=== PATIENT | female | born 1995 | race Caucasian/White ===

== ENCOUNTER 2024-05-07 18:18 | Emergency (ER) | payer MEDICAID, SELFPAY ==
--- NOTE | ~2024-05-07 | CT_ITS ---
EXAMINATION: CT HEAD WITHOUT CONTRAST CLINICAL INFORMATION: Fall COMPARISON: None TECHNIQUE: Contiguous axial imaging was performed from the skull base to vertex without intravenous administration of contrast. This CT examination was performed using dose optimization techniques as appropriate, variously including the following: *Automated exposure control *Adjustment of mA and/or kV according to patient size (this includes techniques or standardized protocols for targeted exams where dose is matched to indication/reason for exam; i.e. extremities or head) *Use of iterative reconstruction technique DLP: 673.93 mGy-cm FINDINGS: There is no evidence of acute intracranial hemorrhage or territorial infarction. No abnormal mass effect or midline shift is seen. Velez to white matter differentiation is well preserved. No extra-axial fluid collections are identified. The ventricles are normal in size. There is no abnormal attenuation within the brain parenchyma. The osseous structures and soft tissues are normal. The mastoid air cells and visualized portions of the paranasal sinuses are well aerated. CT/CT cervical spine wo IV con IMPRESSION: No acute intracranial pathology. EXAMINATION: Noncontrast CT scan of the cervical spine. INDICATION: Fall COMPARISON: None. TECHNIQUE: Helical, multidetector axial images were obtained from the occiput to the upper thorax. Coronal and sagittal reformats of the cervical spine were provided for interpretation. DLP: 407.49 mGy-cm FINDINGS: No acute fractures or dislocations of the cervical spine are seen. Straightening the normal cervical curvature. Anatomic alignment and positioning of the vertebral bodies and posterior elements is noted. The atlantoaxial joint and craniovertebral articulations are normal without evidence of subluxation. There is no prevertebral soft tissue swelling. The thyroid gland and visualized portions of the lung apices and mediastinum are unremarkable. IMPRESSION: 1. No acute visible fracture or dislocation. 2. Straightening of the normal cervical curvature.
[2024-05-07 18:23] VITALS: BP 129/86; PULSE 64; RESP 16; TEMP 36.3; O2SAT 99; BMI 32.9
--- NOTE | 2024-05-07 18:24 | ED.FALL ---
HPI - Fall General Chief Complaint: Head Injury Stated Complaint: fell hit head Time Seen by Provider: 05/07/24 19:10 Source: patient Mode of arrival: ambulatory History of Present Illness ED Provider: Dr Ospina HPI Narrative: 28-year-old female, , presents 2 months with stating that she has been under lot of stress lately, she has a 2-month-old baby, not currently , and states that her has said that her behavior is very erratic and ended the baby to him and then ran to the other side of the house at which time he heard a thud and went into the room and found her on the floor, patient does not recall the event herself but states that the back of her head hurts and she has a bump. She reports that she has had previous diagnosis of depression but is not currently on medication, approximately 10 years ago she had a similar break, attempted to harm herself and presented to the hospital. Related Data Allergies Allergy/AdvReac Type Severity Reaction Status Date / Time No Known Allergies Allergy Verified 05/07/24 18:27 Review of Systems Review of Systems: Pertinent positives and negatives as stated in HPI PMFSH Past Medical History Source: nursing notes reviewed Social History Social History Advance Directives: No Advance Directives Information Provided: No Physical Exam Vital Signs: Vital Signs: Last Vital Signs Temp 97.4 F 05/07/24 18:23 Pulse 64 05/07/24 18:23 Resp 16 05/07/24 18:23 BP 129/86 05/07/24 18:23 Pulse Ox 99 05/07/24 18:23 O2 Del Method Room Air 05/07/24 18:23 BMI result Body Mass Index 32.9 VITAL SIGNS: Reviewed. GENERAL: Well developed, well nourished, in no acute distress. HEAD: Normocephalic/contusion to scalp on left occiput EYES: PERRLA, EOMI EARS: Ext canals without abnormality, TMs non-bulging and non-erythematous NOSE: Nares patent bilateral OROPHARYNX: no oral lesions noted, posterior pharynx clear and non-erythematous without noted tonsillar enlargement/erythema/exudates NECK: Supple, no adenopathy LUNGS: Normal breath sounds. No adventitious sounds or accessory muscle use. SpO2<99> CARDIOVASCULAR: Regular rate and rhythm without noted murmurs ABDOMEN: Soft, non-tender, non-distended with bowel sounds. MUSCULOSKELETAL: No tenderness, deformities, or effusions noted on gross inspection. EXTREMITIES: No cyanosis, clubbing or edema. SKIN: Inspection of the skin reveals no rashes NEUROLOGIC: Alert and oriented x 4. Strength and sensation to light touch were grossly intact x 4, cranial nerves 2-12 are grossly intact. Course Course Course Narrative: This is a rapid medical exam completed by Ana OLMOSN: Additional HPI, ROS, PE not included below will be deferred to primary provider. 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 States that she can't think. Unsure when her birthday is. Speaking in full sentences Plan: CT head and c-spine, UA, labs, upreg, etoh, cartwright Medications Administered Discontinued Medications Generic Name Dose Route Start Last Admin Trade Name Freq PRN Reason Stop Dose Admin Acetaminophen 975 mg 05/07/24 20:48 05/07/24 21:10 Acetaminophen 325 Mg Tablet PO 05/07/24 20:49 975 mg ONCE ONE Administration Ibuprofen 400 mg 05/07/24 20:48 05/07/24 21:10 Ibuprofen 400 Mg Tablet PO 05/07/24 20:49 400 mg ONCE ONE Administration Lidocaine 1 patch 05/07/24 20:48 05/07/24 21:10 Lidocaine 4 % Patch Adh..Patch TRANSDERMA 05/07/24 20:49 1 patch ONCE ONE Administration Protocol Potassium Chloride 60 meq 05/07/24 20:13 05/07/24 20:39 Potassium Chloride Er 20 Meq Tab.Er.Prt PO 05/07/24 20:14 60 meq ONCE ONE Administration Medical Decision Making Medical Decision Making [facility] Narrative: 28-year-old female with history and clinical presentation, DDX: Fall, depression I reviewed all investigations and hematologic indices are negative for leukocytosis/anemia/thrombocytopenia. Chemistry indices do not demonstrate an ORALIA there is a mild low potassium which was repleted with 60 mEq of potassium chloride and otherwise no liver enzyme derangements. Ethanol undetectable. Urinalysis is negative for UTI or hematuria and see is negative. CT of the head is negative for intracranial hemorrhage or mass effect and cervical spine is also negative for fracture or subluxation. Patient is otherwise medically cleared for further evaluation by the crisis team. Patient placed in physician observation because the patient needed more time for evaluation by the care team. At the time observation was started the patient's vital signs were stable, patient is alert and oriented, neuro: Nonfocal, CV RRR, lungs clear 2125: Patient was evaluated by the crisis team and they have spoken with both the patient and the and feel that she is a safe discharge to home with outpatient resources. Differential Diagnosis Differential Diagnoses: The differential diagnosis associated with the presentation includes Please see the discussion above Admission/Observation Consideration of admission/observation: Escalation of care including admission/observation considered Please see the discussion above Consult Healthcare Provider Management of the patient was discussed with: Loan Processing Supervisor Please see the discussion above Lab Data MDM Lab Attestation statement: I reviewed the patient's lab results. Please see the discussion 05/07/24 18:33 05/07/24 18:33 Labs: Lab Results 05/07/24 05/07/24 Range/Units 18:33 20:49 WBC 8.8 (4.8-10.8) X10*3/uL RBC 4.83 (4.20-5.50) X10*6/uL Hgb 13.6 (12.0-16.0) g/dl Hct 39.2 (37.0-47.0) % MCV 81.2 (80.0-98.0) fL MCH 28.2 (27.0-33.0) pg MCHC 34.7 (31.0-35.0) g/dl RDW 14.0 (11.0-16.0) % Plt Count 399 (160-400) X10*3/uL MPV 9.5 (9.4-12.3) fL Immature Gran % (Auto) 0.2 (0.0-0.4) % Neut % (Auto) 60.3 (45-73) % Lymph % (Auto) 31.1 (20-40) % Sherman % (Auto) 7.2 (2-11) % Eos % (Auto) 0.6 (0-4) % Baso % (Auto) 0.6 (0-2) % Lymph # (Auto) 2.7 (1.2-4.9) X10*3/uL Sherman # (Auto) 0.6 (0.1-1.2) X10*3/uL Eos # (Auto) 0.1 (0.0-0.4) X10*3/uL Baso # (Auto) 0.1 (0.0-0.2) X10*3/uL Abs Immat Gran (auto) 0.02 (0.00-0.03) X10*3/uL Absolute Neuts (auto) 5.3 (2.0-8.3) x10*3/uL Absolute Nucleated RBC 0.000 (0.0-0.012) X10*3/uL Nucleated RBC % (auto) 0.0 (0.0-0.2) /100WBC Sodium 143 (135-145) mmol/L Potassium 3.2 L (3.3-5.1) mmol/L Chloride 111 H (96-108) mmol/L Carbon Dioxide 22 (22-29) mmol/L Anion Gap 13 (12-20) BUN 14 (9-16) mg/dL Creatinine 0.72 (0.5-1.4) mg/dL Estim Creat Clear Calc 102.7 Estimated GFR > 60 Random Glucose 109 (60-115) mg/dL Calcium 9.7 (8.4-10.2) mg/dL Magnesium 1.9 (1.6-2.6) mg/dL Total Bilirubin 0.5 (0.0-1.0) mg/dL AST 21 (5-31) U/L ALT 39 H (0-31) U/L Alkaline Phosphatase 82 (39-117) U/L Total Protein 7.9 (6.5-8.0) g/dL Albumin 4.7 (3.5-5.0) g/dL Beta HCG, Quant < 2 mIU/mL Urine Color Dark Yellow Urine Appearance Cloudy Urine pH 5.5 (5.0-9.0) Ur Specific [place] >= 1.030 H (1.005-1.025) Urine Protein Trace (Neg-Trace) mg/dL Urine Glucose (UA) Negative (Negative) mg/dL Urine Ketones 40 (Negative) mg/dL Urine Blood Negative (Negative) Urine Nitrite Negative (Negative) Ur Leukocyte Esterase Negative (Negative) Urine Test NEGATIVE (NEGATIVE) Urine Opiates Screen Not Detected (Not Detect) Ur Buprenorphine Scrn Not Detected (Not Detect) ng/mL Ur Oxycodone Screen Not Detected (Not Detect) ng/mL Urine Methadone Screen Not Detected (Not Detect) ng/mL Urine Fentanyl Screen Not Detected (Not Detect) Ur Barbiturates Screen Not Detected (Not Detect) Ur Phencyclidine Scrn Not Detected (Not Detect) Ur Amphetamines Screen Not Detected (Not Detect) U Benzodiazepines Scrn Not Detected (Not Detect) Urine Cocaine Screen Not Detected (Not Detect) U Marijuana (THC) Screen POSITIVE H (Not Detect) Ethyl Alcohol < 10 mg/dL Radiology Impression Discussion of test interpretation with radiology: I have reviewed the radiologist's reading. Radiologist Impression: Please see the discussion above External Record Review External record reviewed: Outpatient record, Prior outpatient labs and Prior outpatient radiology Critical Care Time Critical Care Time Critical Care Time: Yes Total Critical Care Time: 60 Attestation: I personally attest to this time spent taking care of the patient. Discharge Plan Discharge Clinical Impression: Fall, Contusion of scalp, Stress at home, Cannabis use with anxiety disorder Patient Disposition: Home, Self-Care Instructions: Fall Prevention (ED), Scalp Contusion in Adults (ED), Stress (ED) Additional Instructions: I recommend that you reduce cannabis use as this can contribute to anxiety/depression/stress. Do not hesitate to return to this emergency room if you ever have feelings of wanting to harm yourself. Print Language: Danish
[2024-05-07 18:37] LABS: MANUAL DIFF FLAG NO
[2024-05-07 18:43] LABS: Basophils Absolute Auto 0.1 X10*3/uL (0.0-0.2); Basophils Percent Auto 0.6 % (0-2); Eosinophils Absolute Auto 0.1 X10*3/uL (0.0-0.4); Eosinophils Percent Auto 0.6 % (0-4); Hematocrit 39.2 % (37.0-47.0); Hemoglobin 13.6 g/dl (12.0-16.0); Imm Gran Abs Auto 0.02 X10*3/uL (0.00-0.03); Imm Gran Pct Auto 0.2 % (0.0-0.4); Lymphocytes Absolute Auto 2.7 X10*3/uL (1.2-4.9); Lymphocytes Percent Auto 31.1 % (20-40); Mean Corpuscular HGB Conc 34.7 g/dl (31.0-35.0); Mean Corpuscular Hemoglobin 28.2 pg (27.0-33.0); Mean Corpuscular Volume 81.2 fL (80.0-98.0); Mean Platelet Volume 9.5 fL (9.4-12.3); Monocytes Absolute Auto 0.6 X10*3/uL (0.1-1.2); Monocytes Percent Auto 7.2 % (2-11); Neutrophils Absolute Auto 5.3 x10*3/uL (2.0-8.3); Neutrophils Percent Auto 60.3 % (45-73); Platelet Count 399 X10*3/uL (160-400); Red Blood Count 4.83 X10*6/uL (4.20-5.50); White Blood Count 8.8 X10*3/uL (4.8-10.8)
[2024-05-07 19:04] LABS: Alanine Aminotransferase 39 U/L (0-31); Albumin Level 4.7 g/dL (3.5-5.0); Alkaline Phosphatase 82 U/L (39-117); Anion Gap 13 (12-20); Aspartate Amino Transferase 21 U/L (5-31); Bilirubin Total 0.5 mg/dL (0.0-1.0); Blood Urea Nitrogen 14 mg/dL (9-16); Calcium 9.7 mg/dL (8.4-10.2); Carbon Dioxide 22 mmol/L (22-29); Chloride 111 mmol/L (96-108); Creatinine Clr Calc Pharmacy 102.7; Estimated Glomerular Filt Rate > 60; Ethanol < 10 mg/dL; Glucose Random 109 mg/dL (60-115); Magnesium 1.9 mg/dL (1.6-2.6); Potassium 3.2 mmol/L (3.3-5.1); Sodium 143 mmol/L (135-145); Total Protein 7.9 g/dL (6.5-8.0)
--- OUTSIDE RECORDS SUMMARY | 2024-05-07 19:17 | XMS_ITS | Continuity of Care Document ---
Author Organization [facility] Address [address] [place] [id number]- Care Team Providers Care Foiling Machine Operator Name Role Phone Not on Staff, PCP Primary Care Physician Unavail able Encounter [facility] Date(s): 04/09/22 - 05/09/[address] [id number]- Allergies, Adverse Reactions, Alerts No Known Allergies Immunizations Given and Recorded Vaccine Date Status Refusal Reason tetanus/diphtheria/pertussis, acel(Tdap) 02/02/22 Given tetanus/diphtheria/pertussis, acel(Tdap) 12/13/08 Recorded SARS-CoV-2 (COVID-19) mRNA BNT-162b2 vac 12/10/20 Recorded SARS-CoV-2 (COVID-19) mRNA BNT-162b2 vac 11/19/20 Recorded tetanus-diphtheria toxoids (Td) 05/05/15 Recorded influenza virus vaccine, inactivated 10/03/14 Santosh rded influenza virus vaccine, inactivated 09/25/13 Santosh rded influenza virus vaccine, inactivated 12/10/12 Santosh rded influenza virus vaccine, inactivated 11/22/11 Santosh rded influenza virus vaccine, inactivated 01/11/11 Santosh rded influenza virus vaccine, inactivated 09/19/07 Santosh rded influenza virus vaccine, inactivated 09/15/06 Santosh rded Meningococcal Conjugate Vaccine 07/12/14 Recorded Meningococcal Conjugate Vaccine 12/13/08 Recorded Human Papillomavirus Vaccine 01/11/12 Recorded Human Papillomavirus Vaccine 01/11/11 Recorded Human Papillomavirus Vaccine 01/06/10 Recorded influ virus vac, H1N1, inactive(oldterm) 10/21/09 Recorded influ virus vac, H1N1, inactive(oldterm) 08/21/09 Recorded Varicella Virus Vaccine 09/19/07 Recorded Varicella Virus Vaccine 10/01/97 Recorded Poliovirus Vaccine, Inactivated 08/21/02 Recorded diphtheria/tetanus/pertussis, acel(DTaP) 08/21/02 Recorded diphtheria/tetanus/pertussis, acel(DTaP) 04/03/98 Recorded diphtheria/tetanus/pertussis, acel(DTaP) 03/29/97 Recorded diphtheria/tetanus/pertussis, acel(DTaP) 01/28/97 Recorded diphtheria/tetanus/pertussis, acel(DTaP) 96 Recorded Measles/Mumps/Rubella Virus Vaccine 05/30/01 Recor ded Measles/Mumps/Rubella Virus Vaccine 01/01/98 Recor ded Haemophilus B conjugate (HbOC) vaccine 01/01/98 Re corded Haemophilus B conjugate (HbOC) vaccine 03/29/97 Re corded Haemophilus B conjugate (HbOC) vaccine 01/28/97 Re corded Haemophilus B conjugate (HbOC) vaccine 96 Re corded hepatitis B pediatric vaccine 07/05/97 Recorded hepatitis B pediatric vaccine 96 Recorded hepatitis B pediatric vaccine 96 Recorded Medications ferrous gluconate 256 mg (28 mg elemental iron) oral tablet 1 tablet = 256 mg, By Mouth, Daily, # 30 tablet, 2 Refills, Maintenance, 02/03/22 11:50:00 EDT, Tablet, [id number], Partial fill upon patient request if the prescription is for a schedule II opioid drug., 153, cm, 02/02/22 9:51:00 EDT, Height,... Start Date: 02/03/22 Status: Ordered Multivitamins with Folic Acid 1 mg oral tablet 1 tablet, By Mouth, Daily, # 90 tablet, 2 Refills, Maintenance, 09/15/21 14:32:00 EDT, Tablet, [id number], Partial fill upon patient request if the prescription is for a schedule II opioid drug., 1 tablet By Mouth Daily Start Date: 09/15/21 Status: Ordered Problem List Condition Effective Dates Status Health Status Inform ant Elevated glucose tolerance test(Confirmed) Active Anemia during (Confirmed) Active Lower back pain(Confirmed) Active Drug use affecting , antepartum(Confirmed) Active Anxiety and depression(Confirmed) Active Obese class II(Confirmed) Active (Confirmed) Active Vaccination reaction(Confirmed) Active Maternal varicella, non-immune(Confirmed) Active Social History Social History Type Response Smoking Status Never (less than 100 in lifetime) entered on: 09/15/21 Sex
--- OUTSIDE RECORDS SUMMARY | 2024-05-07 19:17 | XMS_ITS | Continuity of Care Document ---
Author Organization [facility] Address [address] [place] [id number]- Care Team Providers Care Wind Up Operator Name Role Phone Not on Staff, PCP Primary Care Physician Unavail able [facility]counter [facility] Date(s): 08/25/21 - 09/24/21 [facility] [address] [address]- Allergies, Adverse Reactions, Alerts No Known Medication Allergies Substance Reaction Severity Status NKA Active Medications Multivitamins with Folic Acid 1 mg oral tablet 1 tablet, By Mouth, Daily, # 90 tablet, 2 Refills, Maintenance, 09/15/21 14:32:00 EDT, Tablet, [id number], Partial fill upon patient request if the prescription is for a schedule II opioid drug., 1 tablet By Mouth Daily Start Date: 09/15/21 Status: Ordered Problem List Condition Effective Dates Status Health Status Inform ant Anxiety and depression(Confirmed) Active Social History Social History Type Response Smoking Status Never (less than 100 in lifetime) entered on: 09/15/21 Sex
--- OUTSIDE RECORDS SUMMARY | 2024-05-07 19:17 | XMS_ITS | Continuity of Care Document ---
Author Organization [facility] Address [address] [place] [id number]- Care Team Providers Care Mds Coordinator Name Role Phone Not on Staff, PCP Primary Care Physician Unavail able Encounter [facility] Date(s): 04/20/22 - 06/17/[address] [address]- Attending Physician: Not on Staff, Attending MD Allergies, Adverse Reactions, Alerts No Known Allergies [...] Effective Dates Status Health Status Inform ant History of drug use(Confirmed) Active Lower back pain(Confirmed) Active Anxiety and depression(Confirmed) Active Obese class I(Confirmed) Active Vaccination reaction(Confirmed) Active Social History Social History Type Response Smoking Status Never (less than 100 in lifetime) entered on: 09/15/21 Sex
--- OUTSIDE RECORDS SUMMARY | 2024-05-07 19:17 | XMS_ITS | Continuity of Care Document ---
Author Organization [facility] Address [address] [place] [phone]- Care Team Providers Care Green Marketing Analyst Name Role Phone Not on Staff, PCP Primary Care Physician Unavail able [place] [facility] [place] 08/19/21 - 08/19/[address] [address]- Encounter Diagnosis Mood changes(Final) - 08/19/21 (Final) - 08/19/21 Discharge Disposition: A-D/C Home Attending Physician: Mirta Jara MD Admitting Physician: Mirta Jara MD Referring Physician: Not on Staff, Referring MD Allergies, Adverse Reactions, Alerts No Known Medication Allergies Substance Reaction Severity Status NKA Active Medications Vistaril pamoate 25 mg oral capsule 1 capsule = 25 mg, By Mouth, 3 times a day, PRN for anxiety, # 40 capsule, 0 Refills, Maintenance, 12/15/20 20:35:00 EST, Capsule, [id number], Partial fill upon patient request if the prescription is for a schedule II opioid drug. Start Date: 12/15/20 Status: Ordered Vital Signs Most recent to oldest [Reference Range]: 1 2 3 Oxygen Saturation [94-100 %] 100 % (08/19/21 4:06 PM) 97 % (08/19/21 12:35 PM) 97 % (08/19/21 12:25 PM) Pulse Rate [55-90 bpm] 68 bpm (08/19/21 4:06 PM) 60 bpm (08/19/21 12:35 PM) 64 bpm (08/19/21 12:25 PM) Blood Pressure [90-138/55-84 mm Hg] 131/76mm Hg (08/19/21 4:06 PM) 120/52mm Hg (08/19/21 12:35 PM) Respiratory Rate [16-30 br/min] 16 br/min (08/19/21 4:06 PM) 16 br/min (08/19/21 12:35 PM) Temperature [96.8-100.4 DegF] 99.5 DegF (08/19/21 12:35 PM) Mode of Delivery (Oxygen) Room air (08/19/21 4:06 PM) Room air (08/19/21 12:35 PM) Room air (08/19/21 12:25 PM) Temperature Route Oral (08/19/21 12:35 PM)
--- OUTSIDE RECORDS SUMMARY | 2024-05-07 19:17 | XMS_ITS | Continuity of Care Document ---
Author Organization [facility] Address [address] [facility] 2nd Floor [address] [place] [address]- Care Team Providers Care Pay Per Click Strategist Name Role Phone Not on Staff, PCP Primary Care Physician Unavail able Encounter [facility] Date(s): 10/21/23 - 12/08/23 [facility] [address] [place] [address]- Attending Physician: Salvador Rae MD Admitting Physician: Salvador Rae MD Referring Physician: Evie Lynch DO Allergies, Adverse Reactions, Alerts No Known Allergies [...] Date: 09/15/21 Status: Ordered Problem List Condition Confirmation Course Effective Dates Status Health [facility] Informant History of drug use Confirmed Active Lower back pain Confirmed Active Anxiety and depression Confirmed Active Obese class I Confirmed Active Vaccination reaction Confirmed Active Social History Social History Type Response Smoking Status Never (less than 100 in lifetime) entered on: 09/15/21 Sex Patient Care team information Care Team Personnel Name: Not on Staff, PCP Position: S Physician (General Medicine) Member Role: PCP Care Team Related Persons Name: ISSACKARLAWAI Address: [place] [address] Name: SKYE KRAFT Address: [place] Address: home [address] [place] [address] Name: DIONNE KRAFT Address: [place] [address] [place] [address]
--- OUTSIDE RECORDS SUMMARY | 2024-05-07 19:17 | XMS_ITS | Continuity of Care Document ---
Author Organization [facility] Address [address] [place] [address]- Care Team Providers Care Oil Rigger Name Role Phone Not on Staff, PCP Primary Care Physician Unavail able [place] [facility] [place] 09/18/21 [facility] [address] [place] [address]- Allergies, Adverse Reactions, Alerts No Known Medication [...]
--- OUTSIDE RECORDS SUMMARY | 2024-05-07 19:17 | XMS_ITS | Continuity of Care Document ---
Author Organization [facility] Address [address] [place] [id number]- Care Team Providers Care Air Brake Man Name Role Phone Not on Staff, PCP Primary Care Physician Unavail able [facility] - 02/13/[address] [id number] Discharge Disposition: A-D/C Home Attending Physician: Faith Rogers MD Admitting Physician: Faith Rogers MD Referring Physician: Faith Rogers MD Allergies, Adverse Reactions, Alerts No Known [...] I Confirmed Active Vaccination reaction Confirmed Active Vital Signs Most recent to oldest [Reference Range]: 1 Oxygen Saturation [94-100 %] 95 % (02/13/24 4:10 PM) Blood Pressure [90-138/55-84 mm Hg] 104/ 64mm Hg (02/13/24 4:10 PM) Respiratory Rate [16-30 br/min] 16 br/mi n (02/13/24 4:10 PM) Temperature [96.8-100.4 DegF] 98.4 DegF (02/13/24 3:52 PM) Mode of Delivery (Oxygen) Room air (02/13/24 4:10 PM) Temperature Route Oral (02/13/24 3:52 PM) Social History Social History Type Response Smoking Status Never (less than 100 in lifetime) entered on: 09/15/21 Sex History and physical note * Zeyad MILES, Savita Garber: PERFORM Event Display: History and Physical Hospital Authored Date: [id number] Patient: ??FABIAN MURRAY ? Age:??28 Years?Sex:??Female?:??1995?? OB Reason for Admission OB Reason for Admission?? No qualifying data available. LMP/EGA/JENNY Gestational Age (EGA) and JENNY? * Note: EGA calculated as of 02/13/2024 ?? JENNY:??02/24/2024?EGA*:??38 weeks 3 days ? History?(1,0,0,1)?Method:??Reported EGA/JENNY??(01/27/2024) History of Present Illness Fabian is a 28 yo @ 38w3d gestation that has been having mild contractions all day that have increased in frequency and intensity. Pt advised to present to [facility] for labor evaluation. On arrival patient was having mild discomfort and was found to be 3-4 cm/60/-3 with irregular contractions.?? Review of Systems General:afebrile??Denies fever, chills, weakness. Respiratory: Denies shortness of breath, cough. CV: No chest pain or discomfort, dizziness. GI: No nausea, vomiting, diarrhea. : No dysuria. PRODUCTION MANAGER: Denies vaginal bleeding, vaginal irritation, or pain. Musculoskeletal: No muscle pain. Neuro: Denies headache, dizziness, vision changes. Physical Exam Vitals & Measurements T:??98.4?F?? HR:??92??(Monitored)?? RR:??16?? BP:??104/64?? SpO2:??95%?? Constitutional: Well-developed, no acute distress. Respiratory:??Non-labored breathing. Cardiovascular: No edema. Abdomen/GI: Soft, non-tender, non-distended, no guarding or rebound tenderness. Gravid. Extremities: No edema or tenderness. Warm and well-perfused. Skin: No rash or jaundice. Neurological/Psychiatric: Appearance appropriate, mood and affect stable. ?? EFW: 3200g Vertex by [place]'s. 3-4/60/-3 Reactive NST FHR 140, moderate variability, acels??present, no decels,??irregular & mild contractions q 6 mins.??Membranes intact. No cervical change after >60 minutes. OB Assessment Cervical Cervical Dilatation3 cm Cervical Gysqvyfuoc08% Station-3 Assessment/Plan Term (Z34.90):??Reviewed S&S of active labor, FKC, how to reach OC CNM. Discussed no cervical change. Patient advised to take hot shower at home, eat, and early to bed. Ptcan take 50mg Benedryl for cramping discomfort and to help with sleep. Next visit 02/15/24 with Art Severino CNM at 10:[address] [facility]. Pt should keep appointment andcall with any changes requiring evaluation. ?? OB History History?(1,0,0,1)? # 1 ?Baby 1 ?Outcome Date:??04/17/2022?Outcome or Result:??Vaginal ?Gest Age:??38 weeks 2 days ? Outcome:??Live ? Sex:??Female?Wt:?3175 g ? Complications:??None Labs Labs Labs & Tests Antibody Screen: Negative (08/09/23) Blood Type: O Positive (08/09/23) Creatinine-Blood: 0.5 mg/dL (01/10/24) Glucose 50 Gm, +60 Minutes: 91 mg/dL (12/09/23) Hct:??33.5 %??Low (01/10/24) Hepatitis B Surface Antigen: NEGATIVE (08/09/23) Hepatitis C Ab: NEGATIVE (08/09/23) Hgb:??11.2 Gm/dL??Low (01/10/24) HIV 4th Generation Ab-Ag Result: NEGATIVE (08/09/23) RPR Titer Result: NOT INDICATED (12/09/23) Rubella IgG Ab: POSITIVE (08/09/23) Syphilis Screen by DOROTEO: NEGATIVE (12/09/23) Urine Culture: Urine Culture (11/11/23) Problem List Active Active Problem List Anxiety and depression: (Medical) History of drug use: (Medical) Lower back pain: (Medical) Obese class I: (Medical) : (Obstetric) (01/27/24) Vaccination reaction: (Medical) Procedure/Surgical History [place] tooth Home Medications Ferrous Gluconate: 256 mg = 1 tablet, By Mouth, Daily Multivitamin, : 1 tablet, By Mouth, Daily Allergies NKA No Known Medication Allergies Social History Alcohol Use: Past. Electronic Cigarette/Vaping Electronic Cigarette Use: Never. 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 Exercise Self assessment: Good condition. Home/Environment Living situation: Home/Independent. Lives with: Significant other. Feels unsafe at home: No. Nutrition/Health Diet: Regular. Sexual Sexually involved in last 6 months: Yes. Gender identity: Identifies as female. Substance Abuse Use: Past. Type: Marijuana. Tobacco Use: Never (less than 100 in lifetime). Family History No positive family history reported. Plan OB Plan Circumcision Plan: None (02/13/24) Feeding Plan: Breast milk & Formula (02/13/24) Labor Coping Mechanisms: Nitrous (02/13/24) Patient Requests: boy (02/13/24) Note * Twila Stanford: PERFORM Event Display: Discharge/Transfer Note Hospital Authored Date: [id number] Nursing Discharge Note Entered On: 02/13/2024 17:58 EDT Performed On: 02/13/2024 17:58 EDT by Twila Stanford Nursing Discharge Note 2 Discharge Time : 11/20/2024 17:58 EST Discharge Level of Care at Discharge : Home/[facility] Patient Left Unit Via : Ambulatory Patient Accompanied Off Unit with : Significant other DC Instructions Provided & Signed by Pt : Yes Patient Understands D/C Instructions : Yes Patient Instructions Discharge Signed : Yes Did Pt have Specialty Bed or Wound Vac : No Twila Stanford - 02/13/2024 17:58 EDT * Twila Stanford: PERFORM Event Display: Patient Education/Instruction Authored Date: [id number] Inpatient Adult Discharge Instructions. [address] [id number] Name: FABIAN HOUGH : 1995?? Visit: 02/13/2024 15:38?? Current Date: 02/13/2024 17:50 ?? Account: [id number]?? Inpatient Adult Discharge Instructions We would like to thank you for allowing us to assist you with your healthcare needs. The following includes patient education materials and information regarding your injury/illness. Our entire staffstrives to provide an excellent experience for our patients and their families. PLEASE ENSURE YOU FOLLOW-UP PER THE INSTRUCTIONS BELOW! ?? YOUR OPINION IS IMPORTANT TO US! Please complete the survey you may receive by mail or email. Your feedback will be used to make improvements to the healthcare experiences of our patients and their families. Surveys are administered by [employer] ?? If further treatment with your primary care physician or another doctor is recommended, it is important for you to keep the appointment. Call your primary care physician or return to the Emergency Department immediately if your condition worsens, fails to improve, or new symptoms develop. If you need to find a doctor, you can call [facility] Link for a referral at [phone] or toll free at [phone]) or log in to [email or web address].. ?? [facility], in keeping with [facility] guidance, no longer requires face masks for staff, patientsor visitors in most situations. Similiar to time spent indoors at other locations, there is the chance that you were exposed to repiratory viruses during your time with us (such as flu or COVID-19). If you develop symptoms concerning for a viral respiratory infection, please seek testing (and treatment if indicated) from your medical provider or home test kit. ?? You can view and manage your care through the patient portal or by using a health care jaden of your choosing. [employer] is a website that allows you to securely view your medical information including your hospital discharge summary, office visit summaries, medications and follow-up visits. You can also request appointments, renew medications, and request access to your medical information using a health care jaden of your choosing, or just ask a question. You can enroll at [email or web address] or register during your next office visit. You have been discharged from [facility], Patient Care Unit: [facility]??. If you have any questions regarding these instructions, including results of studies pending, afteryou leave, please call us and we will be happy to assist you 13/06. [facility] Your Care Team Attending Physician Faith Rogers MD?? Consulting Providers Faith Rogers MD?? Tests Performed Below is a partial list of the tests performed during your hospitalization. You may have had other tests and procedures not included in this list. Please discuss all test results with your provider. No tests performed during this visit.?? Primary Care Provider Not on Staff, PCP?? Advance Directive Health Care Proxy on File Yes - Health Care Proxy Discharge Vitals Temperature: 98.4 DegF Respiratory Rate: 16 br/min Systolic Blood Pressure: 104 mm Hg Diastolic Blood Pressure: 64 mm Hg Oxygen Saturation: 95 % Studies Pending All studies ordered during this hospital stay have been completed unless listed below. Please discuss all pending results with your provider listed above in these instructions. ?? No incomplete studies found?? What to do next Instructions From Your Doctor ?? Orders?? Scheduled Follow-Up Appointments Tuesday. 2023 11:20 AM EDT ?? 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 Keep scheduled appointments. Call??office with questions??or concerns.?? Discharge Medications FABIAN MURRAY :1995 Visit Date:02/13/2024 Medications: Please continue your medications until treatment is completed or stopped by your provider. Medications not listed below should be discontinued. Discuss any questions related to medications with your provider. What How Much When Why Instructions Next Dose Unchanged Ferrous Gluconate (ferrous gluconate 256 mg(28 mg elemental iron) oral tablet) 1 tab(s) Oral Daily Anemia during Unchanged Multivitamin, ( Multivitamins with Folic Acid 1 mg oral tablet) 1 tab(s) Oral Daily Prescription Given During Visit No new medications prescribed at time of discharge.?? Laboratory Results Below is a partial list of the most recent Laboratory test results done prior to this discharge. You may have had other tests and procedures not included in this list. Please discuss all test resultswith your provider. Allergies (NKA means No Known Allergies) NKA No Known Medication Allergies Problems Active Problems??(6) Anxiety and depression?? History of drug use?? Lower back pain?? Obese class I? Vaccination reaction?? Education Materials Below is the list of Educational Leaflet Providered with your Discharge Instructions. [employer] Patient Education - Recognizing Labor?? [employer] Patient Education - Kick Counts?? Valuables and Belongings I fully understand and agree that [facility] accepts no responsibility for all my personal property including clothing, toilet articles, radios, jewelry, dentures, hearing aids, rings, money, or any other property that is in my possession or is brought to me after admission. I understand certain valuables may be placed in a hospital safe for a short period of time. I understand that the hospital is not liable for loss or damage due to accident, fire, or other natural occurrence while said property is in the safe. I accept full responsibility for any personal property that I keep with me, and will not hold the hospital responsible in case of loss or disappearance. I acknowledge that i have been encouraged to send valuables and belongings home. ? Other Discharge Information ? Pulmonary Rehab Status?? Pulmonary Rehab Discharge Status?? Respiratory Rate: 16 br/min ? Common Emergency Awareness Tips IS IT A STROKE? Act FAST and Check for these signs: FACE Does the face look uneven? ARM Does one arm drift down? SPEECH Does their speech sound strange? TIME Call at any sign of stroke ?? Heart Attack Signs Chest discomfort: Most heart attacks involve discomfort in the center of the chest and lasts more than a few minutes, or goes away and comes back. It can feel like uncomfortable pressure, squeezing, fullness or pain. Discomfort in upper body: Symptoms can include pain or discomfort in one or both arms, back, neck, jaw or stomach. Shortness of breath: With or without discomfort. Other signs: Breaking out in a cold sweat, nausea, or lightheaded. Remember, MINUTES DO MATTER. If you experience any of these heart attack warning signs, call to get immediate medical attention! ?? Smoking can increase your chances of developing chronic health problems and can cause harmful effects to other family members in your house. If you smoke, you are strongly encouraged to quit. Please call [facility] Link at [phone] or [phone]-[employer] ([phone]) or log in to [email or web address] for referrals to smoking cessation programs. ?? 592 Suicide & Crisis Lifeline is available 13/06 if you or someone you know needs to find a reason to keep living. By calling 040 you'll be connected to a skilled, trained counselor at a crisis center in your area. INPATIENT DISCHARGE INSTRUCTIONS SIGNATURE PAGE FABIAN MURRAY Location:[facility] Registration Date and Time:02/13/2024 15:38 EDT Primary Care Physician: Not on Staff, PCP Attending Physician: Sue SORIANO, Faith, I FABIAN MURRAY, have received the above patient education materials/instructions and have verbalized understanding. If ambulance or transport services are being used I further acknowledge being given a choice of service. ?? If you need to contact me, please call me at this number: . Patient/Glue Wheel Operator Name: Patient/Glue Wheel Operator Signature: Relationship to Patient: Witness Name/Signature: Date: * Twila Stanford: PERFORM Event Display: Patient Education Leaflets Authored Date: [id number] Recognizing Labor ?? [address] Recognizing Labor The beginning of labor is the beginning of . You???ll start to feel strong contractions. That???s when the muscles of your uterus tighten up to help push your baby out during . Yes, labor has likely started?? Signs of labor include: ??? Your contractions are getting stronger and more painful instead of weaker. You???ll likely feel them throughout your whole uterus. ??? Your contractions are regular. This means that you feel them about every 5 to 10 minutes. And they are getting closer together. ??? You have pink- colored or blood-streaked fluid from your vagina. ??? You feel that the baby has dropped lower in your pelvis? Your water breaks. It may be a gush or a slow trickle of clear fluid from your vagina. ?? No, it???s likely not real labor?? Signs of false labor include: ??? Your contractions aren???t regular or strong. ??? You feel the contractions only in your lower uterus. ??? Your contractions go away when you walk or change position. ??? Your contractions go away after drinking fluids. ?? When to call your healthcare provider Call your healthcare provider or clinic right away if you notice any of these signs: ??? Fluid fromyour vagina, with or without contractions. ??? Bleeding heavy enough that you need a sanitary pad. ??? You don???t feel your baby moving as much as before. ?? Note Contractions are timed by both of these measures: ??? The length of each contraction from its startto its finish. ??? How far apart the contractions are ???the time between the start of one contraction and the start of the next contraction. ?? Last Reviewed Date: 2022 ?? [id number] [employer]. All rights reserved. This information is not intended as a substitute for professional medical care. Always follow your healthcare professional's instructions. ?? * Twila Stanford: PERFORM Event Display: Patient Education Leaflets Authored Date: [id number] Kick Counts ?? 97184 Kick Counts It???s normal to worry about your baby???s health. Generally, you will feel your baby start to movein your 2nd trimester at around 16 to 24 weeks. Getting to know the pattern of your baby's movements is one way to know what's normal for you and baby. This is called a kick count. Talk with your healthcare provider about kick counts and your specific situation. Always follow your provider's instructions. How to count kicks Here is just one way to do kick counts. Always follow your healthcare provider's instructions. Starting at 28 weeks, count your baby's movements daily. Time how long it takes you to feel 10 kicks, flutters, swishes, or rolls. Ideally, you want to feel at least 10 movements in 2 hours. You will likely feel 10 movements in less time than that. Here are tips for counting kicks: ??? Choose a time when the baby is active, such as after a meal.? Sit comfortably or lie on your side.? The first time the baby moves,??write down??the time.? Count each movement until the baby has moved?? 10??times. This can take from 20 minutes to 2??hours.? If you haven't felt 10 kicks by the end of the second hour, wait a few hours. Then try again. ??? Try to do it at the same time each day. ?? When to call your healthcare provider Follow your provider's instructions about when to call about your baby's movements. Don't hesitate to call if you have concerns. Call your healthcare provider?? right away??if: ??? You do a couple sets of kick counts during the day and your baby moves fewer than 10??times in??2??hours. ??? Your baby moves much less often than on the??days before. ??? You haven't felt your baby move all day. ?? Last Reviewed Date: 2022 ?? [id number] [employer]. All rights reserved. This information is not intended as a substitute for professional medical care. Always follow your healthcare professional's instructions. ?? Patient Care team information Care Team Personnel Name: Not on Staff, PCP Position: [facility] Physician (General Medicine) Member Role: PCP Name: Twila Stanford Position: [facility] OB RN Member Role: Patient Care Provider Care Team Related Persons Name: ISSACWAI ACOSTA Address: [place] [address] Name: SKYE KRAFT Address: [employer] Address: [place] [address] [place] [address] Name: DIONNE KRAFT Address: home [address] [place] [address]
--- OUTSIDE RECORDS SUMMARY | 2024-05-07 19:17 | XMS_ITS | Continuity of Care Document ---
Author Organization [facility] Address [address] [place] [address]- Care Team Providers Care Gel Coat Sprayer Name Role Phone Not on Staff, PCP Primary Care Physician Unavail able [facility]counter [facility] Date[facility]s): 02/23/22 - 03/25/[address] [address]- Allergies, Adverse Reactions, Alerts No Known Allergies [...] and depression(Confirmed) Active Obese class I(Confirmed) Active (Confirmed) Active Vaccination reaction(Confirmed) Active Maternal varicella, non-immune(Confirmed) Active Social History Social History Type Response Smoking Status Never (less than 100 in lifetime) entered on: 09/15/21 Sex Female
--- OUTSIDE RECORDS SUMMARY | 2024-05-07 19:17 | XMS_ITS | Continuity of Care Document ---
Author Organization [facility] Address [address] [place] [address]- Care Team Providers Care Therapeutic Recreation Leader Name Role Phone Not on Staff, PCP Primary Care Physician Unavail able Encounter [facility] Date(s): 11/04/23 - 12/08/23 [facility] [place] [address] [place] [address]- [place] Encounter Diagnosis Syncope(Discharge Diagnosis) - 11/07/23 (Discharge Diagnosis) - 11/07/23 Attending Physician: Salvador Rae MD Admitting Physician: Salvador Rae MD Referring Physician: Not on Staff, Referring [...] I Confirmed Active Vaccination reaction Confirmed Active Diagnosis Diagnosis Type Effective Dates Health Status Clini ryann Service Informant Syncope Discharge Diagnosis 11/07/23 Discharge Diagnosis 11/07/23 Social History Social History Type Response Smoking Status Never (less than 100 in lifetime) entered on: 09/15/21 Sex Patient Care team information Care Team Personnel Name: Not on Staff, PCP Position: S Physician (General Medicine) Member Role: PCP Care Team Related Persons Name: WAI LAGOS Address: [place] [address] Name: SKYE KRAFT Address: [employer] Address: home [facility] [place] [address] Name: DIONNE KRAFT Address: [place] [place] [address] [place] [address]
--- OUTSIDE RECORDS SUMMARY | 2024-05-07 19:17 | XMS_ITS | Continuity of Care Document ---
Author Organization [facility] Address [address] [place] [address]- Care Team Providers Care Road Inspector Name Role Phone Not on Staff, PCP Primary Care Physician Unavail able [facility]counter [facility] Date(s): 12/10/21 - 01/09/[address] [address]- Allergies, Adverse Reactions, Alerts No Known Allergies Immunizations Given and Recorded Vaccine Date Status Refusal Reason SARS-CoV-2 (COVID-19) mRNA BNT-162b2 vac 12/10/20 Recorded [...] influ virus vac, H1N1, inactive(oldterm) 08/21/09 Recorded tetanus/diphtheria/pertussis, acel(Tdap) 12/13/08 Recorded Varicella Virus Vaccine 09/19/07 Recorded Varicella [...] hepatitis B pediatric vaccine 96 Recorded Medications Multivitamins with Folic Acid 1 mg oral tablet 1 tablet, By Mouth, Daily, # 90 tablet, 2 Refills, Maintenance, 09/15/21 14:32:00 EDT, Tablet, [id number], Partial fill upon patient request if the prescription is for a schedule II opioid drug., 1 tablet By Mouth Daily Start Date: 09/15/21 Status: Ordered Problem List Condition Effective Dates Status Health Status Inform ant Drug use affecting , antepartum(Confirmed) Active Anxiety and depression(Confirmed) Active (Confirmed) Active Vaccination reaction(Confirmed) Active Maternal varicella, non-immune(Confirmed) Active Social History Social History Type Response Smoking Status Never (less than 100 in lifetime) entered on: 09/15/21 Sex Female
--- OUTSIDE RECORDS SUMMARY | 2024-05-07 19:17 | XMS_ITS | Continuity of Care Document ---
Author Organization [facility] Address [address] [place] [address]- Care Team Providers Care Title Assistant Name Role Phone Not on Staff, PCP Primary Care Physician Unavail able [facility] - 04/19/[address] [address] Discharge Disposition: A-D/C Home Attending Physician: Johnathan Bryan MD Admitting Physician: Johnathan Bryan MD Referring Physician: Johnathan Bryan MD Allergies, Adverse Reactions, Alerts No Known [...] hepatitis B pediatric vaccine 96 Recorded Medications Acetaminophen Tablet 650 mg, Tablet, By Mouth, Every 4 hours, PRN for Pain , Mild, (1-3), may give 325mg per patient preference and re-dose with 325mg within 4 hours, if needed. Patient should only receive a total of 650mg of Acetaminophen every 4 hours., Routine, 04/17... Start Date: 04/17/22 Stop Date: 04/19/22 Status: Discontinued ferrous gluconate 256 mg (28 mg elemental iron) oral tablet 1 tablet = 256 mg, By Mouth, Daily, # 30 tablet, 2 Refills, Maintenance, 02/03/22 11:50:00 EDT, Tablet, [facility]/pharmacy #[id number], Partial fill upon patient request if the prescription is for a schedule II opioid drug., 153, cm, 02/02/22 9:51:00 EDT, Height,... Start Date: 02/03/22 Status: Ordered Multivitamins with Folic Acid 1 mg oral tablet 1 tablet, By Mouth, Daily, # 90 tablet, 2 Refills, Maintenance, 09/15/21 14:32:00 EDT, Tablet, [id number], Partial fill upon patient request if the [...] Vaccination reaction(Confirmed) Active Maternal varicella, non-immune(Confirmed) Active Procedures Procedure Date Related Diagnosis Body Site Status [place] tooth Completed Vital Signs Most recent to oldest [Reference Range]: 1 2 3 Height 150 cm (04/19/22 8:10 AM) 150 cm (04/19/22 12:00 AM) 150 cm (04/18/22 4:45 PM) Weight 84.5 kg (04/16/22 7:12 PM) Oxygen Saturation [94-100 %] 96 % (04/19/22 12:00 AM) 97 % (04/18/22 12:00 AM) 97 % (04/17/22 3:23 AM) Pulse Rate [55-90 bpm] 79 bpm (04/19/22 8:10 AM) 63 bpm (04/19/22 12:00 AM) 69 bpm (04/18/22 4:45 PM) Body Mass Index [18.5-24.99] 37.56 *>HHI* (04/16/22 7:12 PM) Blood Pressure [90-138/55-84 mm Hg] 111/67mm Hg (04/19/22 8:10 AM) 122/62mm Hg (04/19/22 12:00 AM) 123/73mm Hg (04/18/22 4:45 PM) Respiratory Rate [16-30 br/min] 18 br/min (04/19/22 8:10 AM) 16 br/min (04/19/22 7:04 AM) 18 br/min (04/19/22 12:00 AM) Temperature [96.8-100.4 DegF] 97.9 DegF (04/19/22 8:10 AM) 98.0 DegF (04/19/22 12:00 AM) 98.2 DegF (04/18/22 4:45 PM) Mode of Delivery (Oxygen) Room air (04/18/22 12:00 AM) Room air (04/17/22 3:23 AM) Room air (04/16/22 6:32 PM) Blood pressure sites Arm, right (04/18/22 4:45 PM) Arm, right (04/18/22 8:00 AM) Arm, right (04/17/22 4:10 PM) Temperature Route Oral (04/19/22 8:10 AM) Oral (04/19/22 12:00 AM) Oral (04/18/22 4:45 PM) Dry Weight 84.5 kg (04/16/22 7:12 PM) Social History Social History Type Response Smoking Status Never (less than 100 in lifetime) entered on: 09/15/21 Sex Female
--- OUTSIDE RECORDS SUMMARY | 2024-05-07 19:17 | XMS_ITS | Continuity of Care Document ---
Author Organization [facility] Address [address] [place] [address]- Care Team Providers Care Youth Minister Name Role Phone Not on Staff, PCP Primary Care Physician Unavail able [facility] Date(s): 04/16/22 - 05/16/[address] [address]- Allergies, Adverse Reactions, Alerts No Known Allergies [...]
--- OUTSIDE RECORDS SUMMARY | 2024-05-07 19:18 | XMS_ITS | Continuity of Care Document ---
Author Organization [facility] Address [address] [place] [address]- Care Team Providers Care Green Marketer Name Role Phone Not on Staff, PCP Primary Care Physician Unavail able [facility] Date(s): 08/20/21 - 09/19/21 [facility] [address] [address] Allergies, Adverse Reactions, Alerts No Known Medication [...]
--- OUTSIDE RECORDS SUMMARY | 2024-05-07 19:18 | XMS_ITS | Continuity of Care Document ---
[facility] Address [address], [address] [place] [address]- Care Team Providers Care Report Specialist Name Role Phone Not on Staff, PCP Primary Care Physician Unavail able [facility] Date(s): 02/03/22 - 03/05/22 [facility] [address], 4th [place] [address]- Allergies, Adverse Reactions, Alerts No Known Allergies [...]
--- OUTSIDE RECORDS SUMMARY | 2024-05-07 19:18 | XMS_ITS | Continuity of Care Document ---
Author Organization [facility] Address [address] [place] [address]- Care Team Providers Care Machine Helper Name Role Phone Not on Staff, PCP Primary Care Physician Unavail able [facility] Date(s): 03/02/22 - 05/28/[address] [address]- Attending Physician: Not on Staff, Attending MD [...]
--- OUTSIDE RECORDS SUMMARY | 2024-05-07 19:18 | XMS_ITS | Continuity of Care Document ---
Author Organization [facility] Address [address] [facility] [address]nd Floor [address] [place] [address]- Care Team Providers Care Pullman Clerk Name Role Phone Not on Staff, PCP Primary Care Physician Unavail able Encounter [facility] Date(s): 11/08/23 - 12/08/23 [facility] [place] [address] [place] [address]- Attending Physician: Zoila Corrales Admitting Physician: Zoila Corrales Referring Physician: AdmtrZoila Allergies, Adverse Reactions, Alerts No Known Allergies [...] Role: PCP Care Team Related Persons Name: ISSACKARLA WAI Address: [place] [address] Name: SKYE KRAFT Address: [place] Address: home [facility] [address] [place] Name: DIONNE KRAFT Address: [address] [address]
--- OUTSIDE RECORDS SUMMARY | 2024-05-07 19:18 | XMS_ITS | Continuity of Care Document ---
Author Organization [facility] Address [address] [place] [address]- Care Team Providers Care Consolidation Accountant Name Role Phone Not on Staff, PCP Primary Care Physician Unavail able [facility] Date(s): 05/31/22 - 06/30/[address] [address]- Attending Physician: Zoila Corrales Admitting Physician: AdmtrZoila Referring Physician: Admtr, ArYulissa Allergies, Adverse Reactions, Alerts No Known Allergies [...]
--- OUTSIDE RECORDS SUMMARY | 2024-05-07 19:18 | XMS_ITS | Continuity of Care Document ---
Author Organization [facility] Address [address] [facility], [address] [place] [address]- Care Team Providers Care Sales Account Specialist Name Role Phone Not on Staff, PCP Primary Care Physician Unavail able [facility] Date(s): 09/08/21 - 10/08/21 [facility] [address] [facility] 4th [place] [address]- Allergies, Adverse Reactions, Alerts No Known Medication [...]
--- OUTSIDE RECORDS SUMMARY | 2024-05-07 19:18 | XMS_ITS | Continuity of Care Document ---
Author Organization [facility] Address [address] [place] [address]- Care Team Providers Care Combat Systems Officer Name Role Phone Not on Staff, PCP Primary Care Physician Unavail able [facility]counter [facility] Date(s): 03/26/24 - 04/25/[address] [address]- Attending Physician: Zoila Corrales Admitting Physician: AdmZoila isaacs Referring Physician: AdmtrZoila Allergies, Adverse Reactions, Alerts [...] Team Related Persons Name: WAI LAGOS Address: [place] [address] Name: ELISEO KRAFT Address: [place] Address: [address] [address] [place] Name: SKYE KRAFT Address: [employer] Address: home [address] [place], [place] Name: DIONNE KRAFT Address: home [address] [place] [address]
--- OUTSIDE RECORDS SUMMARY | 2024-05-07 19:18 | XMS_ITS | Continuity of Care Document ---
Author Organization [facility] Address [address] [place] [address]- Care Team Providers Care Engineering Associate Name Role Phone Not on Staff, PCP Primary Care Physician Unavail able Encounter [facility] Date(s): 10/21/23 - 11/20/23 [facility] [place] [address] [place] [address]- [place] Allergies, Adverse Reactions, Alerts No Known Allergies [...] Personnel Name: Not on Staff, PCP Position: [facility] Physician (General Medicine) Member Role: PCP Care Team Related Persons Name: WAI LAGOS Address: [place] [address] Name: SKYE KRAFT Address: [employer] Address: home [address] [place] [address] Name: DIONNE KRAFT Address: [address] [place] [address]
--- OUTSIDE RECORDS SUMMARY | 2024-05-07 19:18 | XMS_ITS | Continuity of Care Document ---
Author Organization [facility] ter Address [address] [place] [address]- Care Team Providers Care Newspaper Publisher Name Role Phone Not on Staff, PCP Primary Care Physician Unavail able Encounter [facility] Date(s): 12/15/20 - 12/15/[address] [address]- Discharge Disposition: A-D/C Home Attending Physician: Lazarus Loza MD Admitting Physician: Lazarus Loza MD Referring Physician: Not on Staff, Referring MD Allergies, Adverse Reactions, Alerts No Known Medication Allergies Substance Reaction Severity Status NKA Active Medications Vistaril pamoate 25 mg oral capsule 1 capsule = 25 mg, By Mouth, 3 times a day, PRN for anxiety, # 40 capsule, 0 Refills, Maintenance, 12/15/20 20:35:00 EST, Capsule, [id number], Partial fill upon patient request if the prescription is for a schedule II opioid drug. Start Date: 12/15/20 Status: Ordered Results Radiology Reports * Exam Date Time Procedure Performing Provider Status 12/15/20 4:55 PM Chest Portable Maggi Huynh; Taisha (Verified) Notes: (Chest Portable) Reason For Exam: Chest Pain;Other: RESULT: Chest Portable Chest Portable Hx of Present Illness: palpation, heads, slight nausea, decrease PO intake. Pt report that she has had intermittent CP and palpitations since Tuesday, fell impending doom, was seen at [facility]; Reason: Chest Pain; COMPARISON: None. FINDINGS: Clothing zipper overlies the midline chest. LINES AND TUBES: None. LUNGS AND PLEURA: Clear lungs. Normal pulmonary vascularity. No pleural effusion. No pneumothorax. HEART, MEDIASTINUM AND DENISSE: Heart is normal in size. Normal upper mediastinal and hilar contour. BONES AND SOFT TISSUES: No acute abnormality. IMPRESSION: No acute abnormality. WSN: [id number] Ordering Physician: Tobias Rueda MD Dictated By: Eric Ceja MD Dictated Date/Time: 12/15/20 4:57 pm Reviewed By: Eric Ceja MD Signed By: Eric Ceja MD Signed Date/Time: 12/15/20 4:57 pm Transcribed By: GLADYS Transcribed Date/Time: 12/15/20 4:56 pm Vital Signs Most recent to oldest [Reference Range]: 1 2 3 Oxygen Saturation [94-100 %] 98 % (12/15/20 7:39 PM) 100 % (12/15/20 3:29 PM) 100 % (12/15/20 3:06 PM) Pulse Rate [55-90 bpm] 64 bpm (12/15/20 7:39 PM) 121 bpm *H* (12/15/20 3:29 PM) 105 bpm *H* (12/15/20 3:06 PM) Blood Pressure [90-138/55-84 mm Hg] 98/43mm Hg (12/15/20 7:39 PM) 134/79mm Hg (12/15/20 3:29 PM) Respiratory Rate [16-30 br/min] 17 br/min (12/15/20 7:39 PM) 19 br/min (12/15/20 3:29 PM) Temperature [96.8-100.4 DegF] 100.4 DegF (12/15/20 3:29 PM) Mode of Delivery (Oxygen) Room air (12/15/20 3:29 PM) Room air (12/15/20 3:06 PM) Temperature Route Oral (12/15/20 3:29 PM)
--- OUTSIDE RECORDS SUMMARY | 2024-05-07 19:18 | XMS_ITS | Continuity of Care Document ---
Author Organization [facility] Address [address] [place] [address]- Care Team Providers Care Analytical Lab Technician Name Role Phone Not on Staff, PCP Primary Care Physician Unavail able [facility] Date(s): 04/05/22 - 05/05/[address] [address]- Allergies, Adverse Reactions, Alerts No Known Allergies [...]
--- OUTSIDE RECORDS SUMMARY | 2024-05-07 19:18 | XMS_ITS | Continuity of Care Document ---
Author Organization [facility] Address [address] [place] [address]- Care Team Providers Care Daily Release And Dupe Printer Name Role Phone Not on Staff, PCP Primary Care Physician Unavail able [facility] Date(s): 08/18/21 - 09/17/21 [facility] [address] [place] [address]- Attending Physician: Zoila Corrales Admitting Physician: Zoila Corrales Referring Physician: AdmtrZoila Allergies, Adverse Reactions, Alerts No Known Medication [...]
--- OUTSIDE RECORDS SUMMARY | 2024-05-07 19:18 | XMS_ITS | Continuity of Care Document ---
Author Organization [facility] ter Address [address] [place] [id number]- Care Team Providers Care Workers Compensation Claims Supervisor Name Role Phone Not on Staff, PCP Primary Care Physician Unavail able Encounter [facility] Date(s): 02/14/24 - 02/17/[address] [address]- Discharge Disposition: A-D/C Home Attending Physician: Shirlene Dougherty DO Admitting Physician: Shirlene Dougherty DO Referring Physician: Shirlene Dougherty DO Allergies, Adverse Reactions, Alerts No Known [...] hepatitis B pediatric vaccine 96 Recorded Medications acetaminophen 325 mg oral tablet 975 mg, Tablet, By Mouth, Every 6 hours, PRN for Pain , Mild, Routine, 02/14/24 17:59:00 EDT Start Date: 02/14/24 Stop Date: 02/17/24 Status: Discontinued ferrous gluconate 256 mg (28 mg elemental iron) oral tablet 1 tablet = 256 mg, By Mouth, Daily, # 30 tablet, 2 Refills, Maintenance, 02/03/22 11:50:00 EDT, Tablet, [facility]/pharmacy #[id number], Partial fill upon patient request if the prescription is for a schedule II opioid drug., 153, cm, 02/02/22 9:51:00 EDT, Height,... Start Date: 02/03/22 Status: Ordered Ibuprofen Tablet 800 mg, Tablet, By Mouth, Every 8 hours, PRN for Pain , Moderate, (4-6), may give 400mg per patientpreference and re-dose with 400mg within 8 hours if needed. Patient should only receive a total of 800mg of Ibuprofen every 8 hours., Routine, ... Start Date: 02/15/24 Stop Date: 02/17/24 Status: Discontinued Multivitamins with Folic Acid 1 mg oral tablet 1 tablet, By Mouth, Daily, # 90 tablet, 2 Refills, Maintenance, 09/15/21 14:32:00 EDT, Tablet, [facility]/pharmacy #[id number], Partial fill upon patient request if the [...] oldest [Reference Range]: 1 2 3 Height 151 cm (02/17/24 7:40 AM) 151 cm (02/17/24 12:00 AM) 151 cm (02/16/24 4:16 PM) Weight 81.3 kg (02/14/24 6:34 PM) Oxygen Saturation [94-100 %] 97 % (02/17/24 12:00 AM) 96 % (02/16/24 12:10 AM) 100 % (02/15/24 6:11 AM) Pulse Rate [55-90 bpm] 60 bpm (02/17/24 7:40 AM) 57 bpm (02/17/24 12:00 AM) 58 bpm (02/16/24 4:16 PM) Body Mass Index [18.5-24.99 kg/m2] 35.66 kg/m2 *>HHI* (02/14/24 6:34 PM) Blood Pressure [90-138/55-84 mm Hg] 107/59mm Hg (02/17/24 7:40 AM) 105/51mm Hg (02/17/24 12:00 AM) 114/65mm Hg (02/16/24 4:16 PM) Respiratory Rate [16-30 br/min] 16 br/min (02/17/24 7:45 AM) 16 br/min (02/17/24 7:45 AM) 17 br/min (02/17/24 7:40 AM) Temperature [96.8-100.4 DegF] 98.0 DegF (02/17/24 7:40 AM) 98.1 DegF (02/17/24 12:00 AM) 98.3 DegF (02/16/24 4:16 PM) Mode of Delivery (Oxygen) Room air (02/16/24 12:10 AM) Room air (02/15/24 6:11 AM) Room air (02/14/24 5:15 PM) Blood pressure sites Arm, right (02/17/24 7:40 AM) Arm, left (02/16/24 4:16 PM) Arm, left (02/16/24 8:53 AM) Temperature Route Oral (02/17/24 7:40 AM) Oral (02/17/24 12:00 AM) Oral (02/16/24 4:16 PM) Dry Weight 81.3 kg (02/14/24 6:34 PM) 80.8 kg (02/14/24 5:00 PM) Dry Weight Obtained Via Standing scale (02/14/24 5:00 PM) Social History Social History Type Response Smoking Status Never (less than 100 in lifetime) entered on: 09/15/21 Sex History and physical note * Zeyad MILES, Savita Garber: PERFORM Event Display: History and Physical Hospital Authored Date: [id number] Patient: ??LA HOUGH FABIAN ? Age:??28 Years?Sex:??Female?:??1995?? OB Reason for Admission OB Reason for Admission Reason for admission: Labor LMP/EGA/JENNY Gestational Age (EGA) and JENNY? * Note: EGA calculated as of 02/14/2024 ?? JENNY:??02/24/2024?EGA*:??38 weeks 4 days ? History?(1,0,0,1)?Method:??Reported EGA/JENNY??(01/27/2024) History of Present Illness Fabian is a 28 yo @ 38w4d gestation that presents to [facility] for labor evaluation. Patient was seen yesterday for labor check and was found to be 3/80/-3 at the time with irregular ctx.??Patient was discharged home with instructions to call with signs of labor. Patient reports sleeping well over night and return of contractions at approx 1000 today with an increase in the frequency/intensity over the course of the day. Pt reports not eating much today and a mild headache without visual changes. On exam patient was found to be 5/80/-2 with intact membranes. Patient visibly uncomfortable during contractions with eyes closed and focused breathing. BPP 02/08 was 8/8 posterior placenta vertex presentation. course unremarkable.?? Review of Systems General:afebrile??Denies fever, chills, weakness. Respiratory: Denies shortness of breath, cough. CV: No chest pain or discomfort, dizziness. GI: No nausea, vomiting, diarrhea. : No dysuria. 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 Musculoskeletal: No muscle pain. Neuro: Denies??dizziness, vision changes. Patient reports mild headache Physical Exam Vitals & Measurements T:??97.8?F?? HR:??117??(Monitored)?? RR:??18?? BP:??110/68?? SpO2:??100%?? Constitutional: Well-developed, no acute distress. Respiratory:??Non-labored breathing. Cardiovascular: No edema. Abdomen/GI: Soft, non-tender, non-distended, no guarding or rebound tenderness. Gravid. Extremities: No edema or tenderness. Warm and well-perfused. Skin: No rash or jaundice. Neurological/Psychiatric: Appearance appropriate, mood and affect stable. ?? EFW: 3400g, vertex presentation by SVE. 5/80/-2 membranes intact OB Assessment Cervical Cervical Dilatation5 cm Cervical Phzwsdadfw59% Station-2 Assessment/Plan Assessment:?? 28 yo @ 38w4d gestation Cat. I tracing FHR 135, moderate variability, acels present, no decels, ctx q 3- 4 mins 5/80/-2 Membranes intact, GBS neg ?? Mild headache (R51.9): ??975 acetaminophen now BP wnl ?? Normal labor (O80):?? Admit to L&D IV site placed, labs ordered OOB ad pilar PO intake per maternal comfort Plans epidural for labor Cont EFM once epidural placed ?? OB History History?(1,0,0,1)? # 1 ?Baby 1 ?Outcome Date:??04/17/2022?Outcome or Result:??Vaginal ?Gest Age:??38 weeks 2 days ? Outcome:??Live ? Sex:??Female?Wt:?3175 g ? Complications:??None Labs Labs Labs & Tests Antibody Screen: Negative (08/09/23) Blood Type: O Positive (08/09/23) Creatinine-Blood: 0.5 mg/dL (01/10/24) Glucose 50 Gm, +60 Minutes: 91 mg/dL (12/09/23) Hct: 36.4 % (02/14/24) Hepatitis B Surface Antigen: NEGATIVE (08/09/23) Hepatitis C Ab: NEGATIVE (08/09/23) Hgb: 12 Gm/dL (02/14/24) HIV 4th Generation Ab-Ag Result: NEGATIVE (08/09/23) RPR Titer Result: NOT INDICATED (12/09/23) Rubella IgG Ab: POSITIVE (08/09/23) Syphilis Screen by DOROTEO: NEGATIVE (12/09/23) Urine Culture: Urine Culture (11/11/23) Problem List Active Active Problem List Anxiety and depression: (Medical) History of drug use: (Medical) Lower back pain: (Medical) Obese class I: (Medical) : (Obstetric) (01/27/24) Vaccination reaction: (Medical) Procedure/Surgical History [place] tooth Home Medications Ferrous Gluconate: 256 mg [...] reported. Plan OB Plan Circumcision Plan: None (02/14/24) Feeding Plan: Breast milk & Formula (02/14/24) Labor Coping Mechanisms: Nitrous (02/14/24) Patient Requests: boy (02/14/24) Hospital Progress note * Kiki Paz RN: PERFORM, SIGN, VERIFY Event Display: Progress Note Hospital Authored Date: [id number] Patient: FABIAN MURRAY Age: 28 years Sex: Female : 1995 Associated Diagnoses: None Author: Kiki Paz RN VITAL SIGNS STABLE.FUNDUS FIRM WITH MILD LOCHIA.caring for self and independently.voiding qs,pain well controlled with ibuprofen and tylenol.Discharge instructions reviewed with pt. with good latch .slightly sore ,reinforced good latch and positioning.pt demonstates understanding and verbalizes understanding of discharge instructions.will continue to provide emotional supportand teaching until discharge * Cristina Severino CNM: PERFORM Event Display: Progress Note Hospital Authored Date: [id number] Patient: ??FABIAN MURRAY ? Age:??28 Years?Sex:??Female?:??1995?? Subjective Pt reports doing well day 1 PP, requesting discharge tomorrow. and??Bottle feeding. No cracked nipples or bleeding. Latching well. Pain is minimal, mostly uterine cramping. Bleeding is normal flow, no clots. Voiding without pain. Passing gas, c/o constipation - asking for Miralax. No hx anxiety or depression. Review of Systems per HPI Physical Exam Vitals & Measurements T:??98.4?F?? HR:??61??(Peripheral)?? RR:??19?? BP:??108/66?? SpO2:??96%?? HT:??151??cm?? WT:??81.3??kg?? BMI:??35.66?? Gen: Alert, in no distress, oriented to person, place and time, ambulating Resp: Normal respiratory effort Breasts: deferred GI/: Abdomen soft, FF @U/1, No tenderness Musc: Normal range of motion Psych: Normal mood and affect Assessment/Plan state (Z39.2):??Day 1 PP. Continue routine care. Ambulate prn. Diet as tolerated. Encouraged pt to prioritize latching/ and only supplement with formula after/sparingly unless medically??indicated??to encourage breast milk production.??Anticipate d/c home tomorrow.? OB Summary : 2 . Baby A - Weight: 3.524 kg Baby A - Date, Time of : 02/15/24 04:00:00 Baby A - Gender: Male Baby A - Complications: None EGA at Documented Date, Time: 38W 5D Weight at Delivery Baby A - Delivery Type: Vaginal OB History History?(1,0,0,1)? # 1 ?Baby 1 ?Outcome Date:??04/17/2022?Outcome or Result:??Vaginal ?Gest Age:??38 weeks 2 days ? Outcome:??Live ? Sex:??Female?Wt:?3175 g ? Complications:??None Active Problem List Active Problem List Anxiety and depression: (Medical) History of drug use: (Medical) Lower back pain: (Medical) Obese class I: (Medical) : (Obstetric) (01/27/24) Vaccination reaction: (Medical) Home Medications Ferrous Gluconate: 256 mg = 1 tablet, By Mouth, Daily Multivitamin, : 1 tablet, By Mouth, Daily Medications Medications (4) Active SCHEDULED: (0) CONTINUOUS: (0) PRN: (4) Acetaminophen 325 mg Tablet (acetaminophen 325 mg oral tablet) ??975 mg, By Mouth, Every 6 hours Docusate Sodium 100 mg Capsule (Docusate Sodium Capsule) ??100 mg 1 capsule, By Mouth, 2 times a day Ibuprofen 800 mg Tablet (Ibuprofen Tablet) ??800 mg, By Mouth, Every 8 hours Polyethylene Glycol 17 Gm Powder (MiraLax Powder) ??17 Gm 1 pack/packet, By Mouth, Daily * Ghada Bautista RN: PERFORM, SIGN, VERIFY Event Display: Progress Note Hospital Authored Date: Patient: FABIAN MURRAY Age: 28 years Sex: Female : 1995 Associated Diagnoses: None Author: Ghada Bautista RN assumed care pt awake plan for today discussed self care reviewed and infant care feeding and safety including safe sleep reviewed pt encouraged document ation of all feedings and diaper changes po fluids given adn pt medicated with tylenol and colace asking for laxative notified this nurse would page institutional custodian for order po fluids and supplies given offered assist as needed with breast feeding pt also giving some formula when she feels the baby is very hungry and this discussed notified ob institutional custodian jose luis person will be in today pt planning on discharge tomorrow call rodgers at bedside Note * Zhanna Morales RN: PERFORM Event Display: Discharge/Transfer Note Hospital Authored Date: Nursing Discharge Note Entered On: 02/17/2024 12:21 EDT Performed On: 02/17/2024 12:21 EDT by Zhanna Morales RN Nursing Discharge Note 2 Discharge Time : 02/17/2024 12:20 EDT Discharge Level of Care at Discharge : Home/Correction/Foster Care Patient Left Unit Via : Ambulatory Patient Accompanied Off Unit with : Significant other DC Instructions Provided & Signed by Pt : Yes Patient Understands D/C Instructions : Yes Patient Instructions Discharge Signed : Yes Did Pt have Specialty Bed or Wound Vac : No Zhanna Morales RN 02/17/2024 12:21 EDT * Brianda Amaya DO: PERFORM, SIGN, VERIFY Event Display: Discharge/Transfer Note Hospital Authored Date: [id number] Patient: FABIAN MURRAY Age: 28 years Sex: Female : 1995 Associated Diagnoses: None Author: Brianda Amaya DO Discharge Information Admission Date: 02/14/2024 Discharge Date 02/17/2024 Reason for Hospitalization: Reason for Admission: Labor . Delivery Summary Maternal Information Labor Information Baby A Labor Onset Methods: Spontaneous, Augmented Augmentation Methods: Artificial rupture of membranes Delivery Information Gestational Age at Delivery: 38W 5D Anesthesia OB: Epidural 02/14/24 21:59:48 Obstetrical Laceration: Perineum intact Blood Loss(ml): 150 mL Baby A Delivery Information Delivery Type: Vaginal Date, Time of : 02/15/24 04:00:00 Position: Supine Foot of bed removed: No Delayed Cord Clamping: Yes Placenta Delivery Date/Time: 02/15/24 04:08:00 Placenta Delivery Method: Assisted Placenta Appearance: Normal Placenta to Pathology: No Care Team Attending Provider: Shirlene Dougherty DO Delivery Physician: Shirlene Dougherty DO ladle builder #1: Nat العلي, Angie ladle builder #2: Shirlene Jones RN Shredding Machine Tender: Nayely Calloway DO Anesthesiology Attending: Ivon Davis MD Labor Information ROM Date, Time: 02/15/24 01:08:00 monitoring: External monitor Information Outcome: Live Position: Left occiput anterior Weight: 3.524 kg Score 1 minute: 9 Score 5 minute: 9 Score 10 minute: 9 Transferred To: Care area with Family Umbilical Cord Description: 3 vessel cord Complications: None Gender: Male Procedures Performed during hospitalization Vaginal: Vaginal delivery. Condition of patient on discharge: Discharge condition: Excellent. Status:: Breast and Formula. Final Diagnoses:: Active Problems (6) Anxiety and depression History of drug use Lower back pain Obese class I Vaccination reaction . Instructions for continuing care:: Follow Up with: [facility] [employer] [phone] In 6 weeks 03/30/2024. * Andrew العلي, Zhanna Gutierrez: PERFORM, SIGN, VERIFY Event Display: Patient Education/Instruction Authored Date: [id number] Patient Instructions for Discharge [address] [address] Name: LA HOUGH, FABIAN Visit Date: 02/14/2024 17:33:00 Current Date: 02/17/2024 13:53:53 : 1995 Address: [address] [place] [id number] Sex: Female Race: White Ethnicity: Not [facility] would like to thank you for allowing us to assist you with your healthcare needs. The following includes patient education materials and information regarding your injury/illness. Our entire staff strives to provide an excellent experience for our patients and their families. PLEASE ENSURE YOU FOLLOW-UP PER THE INSTRUCTIONS BELOW! If further treatment with your primary care physician or another doctor is recommended, it is important for you to keep the appointment. If you need to find a doctor, you can call [facility] for a referral at [phone] or toll free at [phone] or log in to [email or web address]. Smoking can increase your chances of developing chronic health problems and can cause harmful effects to other family members in your house. If you smoke, you are strongly encouraged to quit. Please call [facility] at [phone] or [phone] ([phone]) or log in to [email or web address] for referrals to smoking cessation programs. You can now view a summary of your hospital visit from the comfort of your home through a free online portal called [employer]. [employer] is a website that allows you to securely view your medical information including discharge summary, medications and follow-up visits. You can also send a secure electronic message to your doctor???s office to request appointments, renew medicationsor just ask a question. You can enroll at [email or web address] or register during your next office visit. The National Suicide Prevention Hotline is available 13/06 if you or someone you know needs to find a reason to keep living. By calling 1-972-903-vdyr ([phone]) you'll be connected to a skilled, trained counselor at a crisis center in your area. You have been discharged from Patient Care Unit: [facility]. Please call with any questions about your discharge instructions. Primary Care Provider: Name: Not on Staff, PCP Phone: Admitting MD: Shirlene Dougherty DO Attending MD: Shirlene Dougherty DO Reason for Visit: PREG JENNY 02 24 2024 LABOR Discharge Diagnosis: Encounter for supervision of normal , unspecified, unspecified trimester; Headache, unspecified; Encounter for full-term uncomplicated delivery; Encounter for routine follow-up Allergies: Allergies ?No??Known??Medication??Allergies ?NKA (NKA means No Known Allergies) DISCHARGE MEDICATION PAGE Name: FABIAN MURRAY : 1995 Medications: Please continue your medications until treatment is completed or stopped by your provider. Medications not listed below should be discontinued. Discuss any questions related to medications with your provider. Medications to Continue with No Changes These medications were not printed or sent to your pharmacy Ferrous Gluconate (ferrous gluconate 256 mg (28 mg elemental iron) oral tablet) 1 tab(s) Oral Daily. Refills: 2. Next Dose: Multivitamin, ( Multivitamins with Folic Acid 1 mg oral tablet) 1 tab(s) Oral Daily. Refills: 2. Next Dose: Additional Medication Instructions: Patient Initials: Original to patient. Copy to be scanned into chart. Patient Visit Summary: Additional Instructions: Tests and Results: Below is a partial list of the tests performed during your hospitalization. You may have had other tests and procedures not included in this list. Please discuss all test results with your provider. Not Applicable Below is a partial list of the most recent Laboratory test results done prior to this discharge. You may have had other tests and procedures not included in this list. Please discuss all test resultswith your provider. Not Applicable STUDIES PENDING All tests and labs ordered during this hospital stay have been completed unless listed below. Please discuss all pending results with your provider listed above in these instructions. Hold Lavender Tube (BB) Advance Directive: Does patient wish to receive further information on Advance Directives? No information on advance directive given because: Other Discharge Information: Last recorded Weight: 81.3 kg Last recorded Blood Pressure: 107 mm Hg/59 mm Hg Smoking Status: Smoking Status ?Never??(less??than??100??in??lifetime) [facility] DISCHARGE INSTRUCTIONS SIGNATURE PAGE Name: FABIAN MURRAY : 1995 Diagnosis: Encounter for supervision of normal , unspecified, unspecified trimester; Headache, unspecified; Encounter for full-term uncomplicated delivery; Encounter for routine follow-up I MASTERAKILAH FABIAN HOUGH, have received the above patient education materials/instructions and have verbalized understanding. If ambulance or transport services are being used I further acknowledge being given a choice of service. Patient???s contact number after discharge: . Patient/Patient District Fire Management Officer Signature Date Instructions given to Patient/Patient District Fire Management Officer and witnessed by: Date: Patient???s valuables/belongings have been returned: Yes No (example: Medications stored in Pyxis, glasses, dentures, hearing aids, items placed in safe) Patient/Patient sales representative canvas products initials Witness??? Initials * Andrew العلي, Zhanna Gutierrez: PERFORM Event Display: Patient Education/Instruction Authored Date: Inpatient Adult Discharge Instructions. [address] [address] Name: FABIAN HOUGH : 1995?? Visit: 02/14/2024 17:33?? Current Date: 02/17/2024 11:24 ?? Account: [id number]?? Inpatient Adult Discharge Instructions We would like [...] and their families. Surveys are administered by [employer] ?? If further treatment with your primary care physician or another doctor is recommended, it is important for you to keep the appointment. Call your primary care physician or return to the Emergency Department immediately if your condition worsens, fails to improve, or new symptoms develop. If you need to find a doctor, you can call [facility] for a referral at [phone] or toll free at [phone] ([phone]) or log in to [email or web address].. ?? [facility], in keeping with [facility] guidance, no longer requires face masks for [...] a health care jaden of your choosing. [employer] is a website that allows you to securely view your medical information including your hospital discharge summary, office visit summaries, medications and follow-up visits. You can also request appointments, renew medications, and request access to your medical information using a health care jaden of your choosing, or just ask a question. You can enroll at [email or web address] or register during your next office visit. You have been discharged from [facility], Patient Care Unit: [facility]??. If you have any questions regarding these instructions, including results of studies pending, afteryou leave, please call us and we will be happy to assist you 13/06. [facility] Your Care Team Attending Physician Shirlene Dougherty DO?? Consulting Providers Shirlene Dougherty DO?? Discharging Providers Brianda Amaya DO Your Diagnosis Mild headache Normal labor state Term Tests Performed Below is a partial list of the tests performed during your hospitalization. You may have had other tests and procedures not included in this list. Please discuss all test results with your provider. CBC Type and Screen Hold Lavender Tube (BB)?? Primary Care Provider Not on Staff, PCP?? Advance Directive Health Care Proxy on File Yes - Health Care Proxy Discharge Vitals Temperature: 98 DegF Height: 151 cm Pulse Rate: 60 bpm Weight: 81.3 kg Respiratory Rate: 16 br/min Body Mass Index:??35.66 kg/m2??Critical Respiratory Rate: 16 br/min Body surface area: 1.85 Systolic Blood Pressure: 107 mm Hg ?? Diastolic Blood Pressure: 59 mm Hg ?? Oxygen Saturation: 97 % ?? Studies Pending All studies ordered during this hospital stay have been completed unless listed below. Please discuss all pending results with your provider listed above in these instructions. ?? Hold Lavender Tube (BB)?? What to do next Instructions From Your Doctor ?? Orders? 02/17/24 10:34:00 EDT?? Instructions from your Care Team Discharge Care Instructions for the New Mom?? Please take a few moments to read through these helpful instructions before you leave the hospital.??Your nurse will be glad to answer any questions you may have. ??You can also find this and more information throughout the purple??Becoming a Family??booklet,??[facility]???s New Beginnings Guide??and the?? Consultation Services Guide??given to you after the of your baby. ??You may also phone our nurses stations if you have further questions. ??[facility]: ??First Floor ([phone]), Second Floor ([phone]). ?? Please call your provider if you have any questions or concerns ??before your next appointment. For ongoing support??please?Like?us on our Facebook page?[facility] New Beginnings?and sign up for our email newsletter at??[email or web address]. ??News and information will be sent to you??until your baby???s third birthday. Instructions for the New Mother Activity:?? For the next 2 weeks at home?no heavy lifting, avoid unnecessary stair climbing, and no driving (especially if you are taking medicine that may make you sleepy or feel that you are sleep deprived). ?? For the next 4-6 weeks - no tampons, no douches, no sexual intercourse. Use your rafael bottle to rinse your perineum until your vaginal flow stops. ??If you have stitches in your bottom, they generally dissolve within 7-10 days. ??Apply Tucks/witch juanis pads until your soreness subsides. ??Use your bathroom at home every 3 to 4 hours, rinse, and change your pads. Warm showers feel great on achy muscles, sore backs and sore bottoms. Exercise: Walking is the best form of exercise. ??Wait until your follow up appointment with your provider in4-6 weeks before engaging in more strenuous activity. Diet: Drink plenty of fluids to avoid constipation and to help support your recovery. Eat plenty of iron rich foods such as red meat, iron fortified cereals like Total and Cream of Wheat, raisins, prunes, greens and spinach. ??These will help to build your blood count back up as all women lose some blood after delivery. ??Also add foods rich in Vitamin C such as strawberries, oranges, papayas, kale and rodgers peppers. Continue to take your vitamins if you are . ??If you are not follow the instructions of your provider. ??If you were prescribed iron supplements such as ferrous sulfate, it is important to continue these until your doctor or institutional custodian tells you to stop. Breast Care for Nursing Mothers: Wear a comfortable fitting, supportive nursing bra. ??An underwire bra is not recommended. Express drops of breast milk and rub over your nipples and areola (brown area) before and after each feeding to protect and heal sensitive skin and then air dry your nipples. ??If you are experiencing any soreness, you may purchase nipple cream such as TenderCare or Lansinoh. ??Use it in the following manner: ??finish your feeding or pumping session, self-express colostrum onto your nipple and air dry, apply the nipple cream to the nipple and areola. ??Use only small amounts for best results. If you are having difficulty getting the baby to latch onto the breast due to swelling of the areola, try applying pressure with your fingers for a couple of minutes above and below your nipple and walk your fingers outward softening the area and pushing the swelling away. ??This technique is knownas reverse pressure softening. ??For demonstrations of this and other techniques such as the [place] Hand Expression technique, please refer to the resources section of the Consultation Services Guide that you received from services.?? When your milk first comes in, usually within 3 to 5 days after delivery, you may experience engorgement. ??Your breasts may become swollen and very tender. ??Cold compresses work great to help with discomfort and reduce swelling. It will get better in a couple of days. ??Continue to nurse your baby frequently. ?? Call [facility]???s Consultation Service at [phone], press 1 to schedule an outpatient appointment or press 3??and a party plan sales consultant will return your call that day or the next if you call after 3pm. Breast Care for Bottle Feeding Mothers: Engorgement may occur within the first week after delivery. ??Your breasts may become hard and verytender. ??A cool compress of cleaned raw green cabbage leaves applied to the breast and changed as leaves wilt has been proven helpful for many women. ??Ice packs or frozen bags of peas also work nicely to ease the discomfort. ??The soreness will only last a couple of days. Keep your back turned to the water while showering to decrease breast stimulation. Wear a snug fitting bra such as a sports bra. ?? Control: Your doctor or institutional custodian will discuss control methods with you when [facility] or at your checkup. ??Be sure to let your provider know if you are . ?? Pain Management: Cramping after is common and increases in strength with each baby you have. ??If you experience painful cramps, and have no allergies to acetaminophen (Tylenol) or ibuprofen (Motrin), you may continue to take these medications as you did in the hospital. ??Ibuprofen is also helpful with back aches following epidurals, perineal pain following a vaginal delivery, and moderate incisional pain after a section or a tubal ligation. ?? If you experience gas distention, especially after surgery, you may take an over the counter medication called simethicone. ??Take these chewable tablets 4 times a day as needed and directed on the package. ??Keep moving. ??Walking or rocking in a chair, will help to move the gas along. ??Gale tea made with heated gale virgie (instead of water) and a tea bag, stirred to dissolve carbonation (bubbles) is a helpful drink to soothe a gassy stomach. Warning Signs of a Problem to Notify Your Doctor or Acid Tank Cleaner of: Heavy vaginal bleeding?which is??soaking a pad every hour??with bright red blood. Passing blood clots the size of an egg or larger. An incision that is not healing. A temperature greater than or equal to 100.4 especially if accompanied by any of the following symptoms?painful, frequent urination; extreme back or flank pain; lower belly pain with a foul smell to your vaginal flow; a red hard hot area on your breast. ?? Severe headache that does not go away after taking acetaminophen or ibuprofen. ?? A headache that changes your vision, including seeing spots or blurring. Right sided upper abdominal pain along the rib cage area. Pain in your legs that is warm and tender to the touch. depression signs may include?loss of interest in your baby, weepiness, difficulty focusing, weight loss with no appetite, exhaustion, feeling overwhelmed or anxious, feelings??of despair, or thoughts of harming yourself or your baby. ??These symptoms are important and should be discussed with your doctor or institutional custodian. depression may develop over a period of time and needs prompt medical attention. ??Do not suffer in silence. ??In both the??Becoming a Family??booklet and the??[facility]??New Beginnings Guide??there is a screening tool used to identify women at risk, called the Sarah Scale which you have taken in the office prior to delivery and again during your ho spital stay. ??Three to four weeks after your delivery, and before your check with your provider, take this test and share your results with your provider. ??Be sure to mention any score of 10 or more. ?? Many women, and even some partners, may experience the?baby blues?? . ??This is a state of feeling overwhelmed and weepy. ??Discomfort from childbirth, hormonal changes, exhaustion, changes to your body and lifestyle are a few of the things that contribute to the highs and lows new parents go through. ??Don???t be afraid to ask your partner or family and friends for some help at home so you can get some rest and a few minutes to yourself. ??The blues will quickly pass. Personal Safety: Every person has the right to feel safe at home and live free from physical or emotional harm. ??Ifyou have suffered mental or physical abuse at home, you are not alone. ??There is help. ??Please call HOTLINE or the [facility] Program at [phone]. Scheduled Follow-Up Appointments Tuesday 11:20 AM EDT ?? With: Salvador Rae MD Where: [facility] [address] [place] [id number]- Status: Pending You Need to Schedule the Following Appointments Follow Up with??[facility] [employer] [phone] When:??In 6 weeks 03/30/2024 EDT Discharge Medications FABIAN MURRAY :1995 Visit Date:02/14/2024 Medications: Please continue your medications until treatment is completed or stopped by your provider. Medications not listed below should be discontinued. Discuss any questions related to medications with your provider. What How Much When Why Instructions Next Dose Unchanged Ferrous Gluconate (ferrous gluconate 256 mg(28 mg elemental iron) oral tablet) 1 tab(s) Oral Daily Anemia during Tonight 8pm Unchanged Multivitamin, ( Multivitamins with Folic Acid 1 mg oral tablet) 1 tab(s) Oral Daily Tonight 8pm Prescription Given During Visit No new medications prescribed at time of discharge.?? Laboratory Results Below is a partial list of the most recent Laboratory test results done prior to this discharge. You may have had other tests and procedures not included in this list. Please discuss all test resultswith your provider. CBC (02/14/2024) ???WBC - 12.4 k/mm3???RBC - 4.34 m/mm3???Hgb - 12.0 Gm/dL???Hct - 36.4 %???MCV - 83.9 femtoliters???MCH - 27.6 pg???MCHC - 33.0 g/dL???Platelet Count - 294 k/mm3???RDW-SD - 40.3 femtoliters???MPV - 10.6 femtoliters???Nucleated RBC (Automated) - 0.0 #/100 WBC'S???Abs. NRBC - 0.0 k/mm3 Type and Screen (02/14/2024) ???Blood Type - O Positive???Antibody Screen - Negative Immunizations This Visit Not Given Vaccine Commentsinfluenza virus vaccine, inactivated Patient Refuses Allergies (NKA means No Known Allergies) NKA No Known Medication Allergies Problems Active Problems??(6) Anxiety and depression?? History of drug use?? Lower back pain?? Obese class I? Vaccination reaction?? Education Materials Below is the list of Educational Leaflet Providered with your Discharge Instructions. WebMD Ignite Patient Education - OB PP [facility]- Discharge Instructions?? Valuables and Belongings I fully understand and agree that [facility] accepts no responsibility for all my [...] encouraged to send valuables and belongings home. ?? Review of Valuable and Belonging List: With patient Date for Pt to Sign Valuables/Belongings: 02/15/24 05:18:00 ?? Other Discharge Information ? Pulmonary Rehab Status?? Pulmonary Rehab Discharge Status?? Respiratory Rate: 16 br/min Respiratory Rate: 16 br/min ? Common Emergency [...] are strongly encouraged to quit. Please call [facility] at [phone] or [phone] ([phone]) or log in to [email or web address] for referrals to smoking cessation programs. ?? 988 Suicide & Crisis Lifeline is available 13/06 if you or someone you know needs to find a reason to keep living. By calling 508 you'll be connected to a skilled, trained counselor at a crisis center in your area. INPATIENT DISCHARGE INSTRUCTIONS SIGNATURE PAGE FABIAN MURRAY Location:[facility] Registration Date and Time:02/14/2024 17:33 EDT Primary Care Physician: Not on Staff, PCP Attending Physician: Shirlene Dougherty DO, I FABIAN MURRAY, have received the above patient education materials/instructions and have verbalized understanding. If ambulance or transport services are being used I further acknowledge being given a choice of service. ?? If you need to contact me, please call me at this number: . Patient/District Fire Management Officer Name: Patient/District Fire Management Officer Signature: Relationship to Patient: Witness Name/Signature: Date: * Brianda Amaya DO: PERFORM, SIGN, VERIFY Event Display: Patient Education Handout Authored Date: * Lynn Martin: PERFORM Event Display: Care Team Progress Note Authored Date: [id number] Patient: ??FABIAN MURRAY ? Age:??28 Years?Sex:??Female?:??1995?? Subjective Mom reported going well. Baby was more fussy overnight and??mom decided to supplementwith formula, offered 5-15 ml formula. Noted also supplemented with formula for first baby. Assessment/Plan Cart round Day 2 - F-up with . Mom felt comfortable with . Offered support. Enc. frequent stimulation to build milk supply. Enc. HE. Rev. infant stomach size, intake and output expectations. Disc paced bottle feeding. Rev. resources available. ?? Infant wt loss calc at 3.3%. ?? Basic education discussed with??mother???including:? Positioning infant for optimal feeding Asymmetric latch technique Nutritive vs. non-nutritive suckling Early vs. late hunger cues Frequent breast stimulation for initiation and maintenance of milk supply Coming to full milk volume in first 14 days Engorgement prevention and management Hand expression When to use a breast pump Consultation reference guide given to mother with contact information for services and ongoing support as needed.? Mom feels confident with . Services will follow up with mom before d/c,??if needed.?? OB Summary : 2 . Baby A - Weight: 3.524 kg Baby A - Date, Time of : 02/15/24 04:00:00 Baby A - Gender: Male Baby A - Complications: None EGA at Documented Date, Time: 38W 5D Weight at Delivery Baby A - Delivery Type: Vaginal OB History History?(1,0,0,1)? # 1 ?Baby 1 ?Outcome Date:??04/17/2022?Outcome or Result:??Vaginal ?Gest Age:??38 weeks 2 days ? Outcome:??Live ? Sex:??Female?Wt:?3175 g ? Complications:??None Active Problem List Active Problem List Anxiety and depression: (Medical) History of drug use: (Medical) Lower back pain: (Medical) Obese class I: (Medical) : (Obstetric) (01/27/24) Vaccination reaction: (Medical) Home Medications Ferrous Gluconate: 256 mg = 1 tablet, By Mouth, Daily Multivitamin, : 1 tablet, By Mouth, Daily Medications Medications (4) Active SCHEDULED: (0) CONTINUOUS: (0) PRN: (4) Acetaminophen 325 mg Tablet (acetaminophen 325 mg oral tablet) ??975 mg, By Mouth, Every 6 hours Docusate Sodium 100 mg Capsule (Docusate Sodium Capsule) ??100 mg 1 capsule, By Mouth, 2 times a day Ibuprofen 800 mg Tablet (Ibuprofen Tablet) ??800 mg, By Mouth, Every 8 hours Polyethylene Glycol 17 Gm Powder (MiraLax Powder) ??17 Gm 1 pack/packet, By Mouth, Daily * Martin Colin RN: PERFORM Event Display: Patient Education Leaflets Authored Date: [id number] OB PP [facility]- Discharge Instructions ?? 209 Discharge Care Instructions for the New Mom and Baby Please take a few moments to read through these helpful instructions before you leave the hospital.?? Your nurse will be glad to answer any questions you may have.?? You can also find this and more information throughout the purple Becoming a Family booklet, [facility] New Beginnings Guide and the Consultation Services Guide given to you after the of your baby.?? You may also phone our nurses stations if you have further questions.?? [facility]:?? First Floor ([phone]), Second Floor ([phone]).?? Please call your provider if you have any questions or concerns?? before your next appointment. For ongoing support please ???Like?? us on our Facebook page ???[facility]???s New Beginnings?? andsign up for our email newsletter at [email or web address].?? News and information will besent to you until your baby???s third birthday. Instructions for the New Mother Activity: For the next 2 weeks at home ??? no heavy lifting, avoid unnecessary stair climbing, and no driving(especially if you are taking medicine that may make you sleepy or feel that you are sleep deprived).?? For the next 4-6 weeks - no tampons, no douches, no sexual intercourse. Use your rafael bottle to rinse your perineum until your vaginal flow stops.?? If you have stitches in your bottom, they generally dissolve within 7-10 days.?? Apply Tucks/witch juanis pads until your soreness subsides.?? Use your bathroom at home every 3 to 4 hours, rinse, and change your pads. Warm showers feel great on achy muscles, sore backs and sore bottoms. Exercise: Walking is the best form of exercise.?? Wait until your follow up appointment with your provider in4-6 weeks before engaging in more strenuous activity. Diet: Drink plenty of fluids to avoid constipation and to help support your recovery. Eat plenty of iron rich foods such as red meat, iron fortified cereals like Total and Cream of Wheat, raisins, prunes, greens and spinach.?? These will help to build your blood count back up as all women lose some blood after delivery.?? Also add foods rich in Vitamin C such as strawberries, oranges, papayas, kale and rodgers peppers. Continue to take your vitamins if you are .?? If you are not follow the instructions of your provider.?? If you were prescribed iron supplements such as ferrous sulfate, it is important to continue these until your doctor or institutional custodian tells you to stop. Breast Care for Nursing Mothers: Wear a comfortable fitting, supportive nursing bra.?? An underwire bra is not recommended. Express drops of breast milk and rub over your nipples and areola (brown area) before and after each feeding to protect and heal sensitive skin and then air dry your nipples.?? If you are experiencing any soreness, you may purchase nipple cream such as TenderCare or Lansinoh.?? Use it in the following manner:?? finish your feeding or pumping session, self-express colostrum onto your nipple and air dry, apply the nipple cream to the nipple and areola.?? Use only small amounts for best results. If you are having difficulty getting the baby to latch onto the breast due to swelling of the areola, try applying pressure with your fingers for a couple of minutes above and below your nipple and walk your fingers outward softening the area and pushing the swelling away.?? This technique is knownas reverse pressure softening.?? For demonstrations of this and other techniques such as the [place] Hand Expression technique, please refer to the resources section of the Consultation Services Guide that you received from services. When your milk first comes in, usually within 3 to 5 days after delivery, you may experience engorgement.?? Your breasts may become swollen and very tender.?? Cold compresses work great to help with discomfort and reduce swelling. It will get better in a couple of days.?? Continue to nurse your baby frequently.?? Call [facility]???s Consultation Service at [phone], press 1 to schedule an outpatient appointment or press 3 and a party plan sales consultant will return your call that day or the next if you call after 3pm. Breast Care for Bottle Feeding Mothers: Engorgement may occur within the first week after delivery.?? Your breasts may become hard and verytender.?? A cool compress of cleaned raw green cabbage leaves applied to the breast and changed as leaves wilt has been proven helpful for many women.?? Ice packs or frozen bags of peas also work nicely to ease the discomfort.?? The soreness will only last a couple of days. Keep your back turned to the water while showering to decrease breast stimulation. Wear a snug fitting bra such as a sports bra. Incision Care Following Tubal or Section: You may shower as directed by your doctor or institutional custodian.?? Pat your incision dry with a clean towel.??You will not need a bandage after the first day. Call your doctor or institutional custodian with any signs of infection such as a hard, hot swollen tender incision, especially if the skin around the incision looks pink or red.?? Yellow drainage with an odor may also be a sign of infection to report. Call your doctor or institutional custodian if the incision begins to separate. If you have steri-strips on the incision, they will likely fall off in the first week.?? If they have not fallen off by 10 days after delivery, you may remove them. Control: Your doctor or institutional custodian will discuss control methods with you when [facility] or at your checkup.?? Be sure to let your provider know if you are . You had a Paragard IUD placed on .?? This control method is effective for 10 years. You had a Liletta placed on .?? This control method is effective for up to 5 years. You had a Nexplanon placed on .?? This control method is effective for up to 3 years. You received a Depo Provera injection on .?? This control method is effective as longas you repeat it every 3 months.?? Schedule your next dose before . You have a prescription for control pills .?? It is important to take a pill everyday at around the same time of day for effective control protection.?? Pain Management: Cramping after is common and increases in strength with each baby you have.?? If you experience painful cramps, and have no allergies to acetaminophen (Tylenol) or ibuprofen (Motrin), you may continue to take these medications as you did in the hospital.?? Ibuprofen is also helpful with back aches following epidurals, perineal pain following a vaginal delivery, and moderate incisional pain after a section or a tubal ligation.?? If you experience gas distention, especially after surgery, you may take an over the counter medication called simethicone.?? Take these chewable tablets 4 times a day as needed and directed on the package.?? Keep moving.?? Walking or rocking in a chair, will help to move the gas along.?? Gale tea made with heated gale virgie (instead of water) and a tea bag, stirred to dissolve carbonation (bubbles) is a helpful drink to soothe a gassy stomach. Warning Signs of a Problem to Notify Your Doctor or Acid Tank Cleaner of: Heavy vaginal bleeding ??? which is soaking a pad every hour with bright red blood. Passing blood clots the size of an egg or larger. An incision that is not healing. A temperature greater than or equal to 100.4 especially if accompanied by any of the following symptoms ??? painful, frequent urination; extreme back or flank pain; lower belly pain with a foul smellto your vaginal flow; a red hard hot area on your breast.?? Severe headache that does not go away after taking acetaminophen or ibuprofen.?? A headache that changes your vision, including seeing spots or blurring. Right sided upper abdominal pain along the rib cage area. Pain in your legs that is warm and tender to the touch. depression signs may include ??? loss of interest in your baby, weepiness, difficulty focusing, weight loss with no appetite, exhaustion, feeling overwhelmed or anxious, feelings of despair, or thoughts of harming yourself or your baby.?? These symptoms are important and should be discussed with your doctor or institutional custodian. depression may develop over a period of time and needs prompt medical attention.?? Do not suffer in silence.?? In both the Becoming a Family booklet and [facility] Guide there is a screening tool used to identify women at risk, called the Sarah Scale which you have taken in the office prior to delivery and again during your hospital s [place].?? Three to four weeks after your delivery, and before your check with your provider, take this test and share your results with your provider.?? Be sure to mention any score of 10 or more.?? Many women, and even some partners, may experience the ???baby blues?? .?? This is a state of feeling overwhelmed and weepy.?? Discomfort from childbirth, hormonal changes, exhaustion, changes to your body and lifestyle are a few of the things that contribute to the highs and lows new parents go through.?? Don???t be afraid to ask your partner or family and friends for some help at home so you can get some rest and a few minutes to yourself.?? The blues will quickly pass. Personal Safety: Every person has the right to feel safe at home and live free from physical or emotional harm.?? Ifyou have suffered mental or physical abuse at home, you are not alone.?? There is help.?? Please call HOTLINE or the [employer] Program at [phone]. CARE Bathing: Give your baby a sponge bath until the cord falls off in about 1-3 weeks.?? It is not necessary to bathe your baby every day, usually every few days is sufficient. ??Keep the cord area dry.?? Some baby girls will have a small bloody vaginal discharge. No need to worry as this is normal. It is not necessary to use lotions on the baby???s skin.?? Powders and oils are not recommended.?? Babies often get rash on their skin which comes and goes quickly and does not require any special care.?? Diaper rash can be treated with a zinc oxide preparation such as Desitin or Balmex diaper cream. Circumcision Care: Your nurse will teach you how to care for your baby???s circumcision depending on the type of circumcision your doctor or institutional custodian performed.?? Most circumcisions require A&D ointment for about 4-5 days.?? Be generous with the amount of A&D used as this will prevent the diaper from sticking when you go to change it. If a plastibell circumcision was done, the plastic ring around the penis will fall off in a week orso. Diapers: After the 1st??few days, the baby will start wetting more often.?? A breast fed baby will wet about6-8 times a day once mom???s milk comes in ??? usually day 4 or 5.?? This is a good sign that the baby is getting plenty to eat.?? You may notice an orangey-pink stain in the diaper which is normal for the first few days. The baby???s first bowel movements are sticky, black and tarry.?? As the baby starts to feed more often over the next couple of days, the stool will change to a seedy yellowish green color and eventually a loose mustard like stool for a breast fed baby and a more formed yellow stool for a bottle fed baby. your Baby: ??Congratulations on deciding to breastfeed your baby! You are providing your baby with the most nourishing food source on the planet, your breast milk.?? Cues such as rooting, suckling, licking and fussing may be telling you that your baby is ready to eat ??? and it is time to offer your breasts. The first weeks following the are a time for you and your baby to learn.?? The baby may be sleepy the first day after with 8 to 12 attempts ??? including 2 to 4 good feedings.?? Over the next couple of days the baby will become more wakeful, feed 8 to 12 times a day and have more wet and poopy diapers.?? Cluster feeding, especially during the evening/night time, is normal. ?? Listen for swallowing sounds and watch the baby as they become more relaxed at the breast ??? both good signs that the baby is getting a good amount of milk.?? Refrain from smoking or eating edible marijuana while you are . Even though marijuana is legal in the state of [place],??it is harmful for your baby.??It stays in breast milk for along period of time and THC can be found in the baby's urine for up to 3 weeks. Second hand smoke can also increase the risk??of Sudden Syndrome / SIDS. ?? Nursing is wonderful but many moms and babies have some degree of difficulty with at first. Don???t give up!?? There are many resources available to help you overcome these temporary problems. Your receptionist scheduler wants to hear from you if you are having difficulties and can offermany helpful suggestions.?? Some offices have consultants on staff. [facility]???s Consultation Service is available 7 days a week, 8am to 3pm at [phone].?? Press 1 to schedule an outpatient appointment.?? Press 3 to leave a message for the sr solutions consultant, a party plan sales consultant will return your call that day or the next if you call after 3pm. Support Groups ??? [facility] offers free gatherings for moms and babies weekly.?? All groups meet at the [facility] Women???s 2nd??floor, typically in the [facility] Conference Room, Tuesday???s 1 to 2 pm.?? Karen Gallagher is a worldwide organization with local community support, mother to mother support.?? Information can be found at https://www.lllusa.org Formula Feeding your Baby: Formula fed babies should eat every 3 to 4 hours.?? Look for cues that your baby is ready ??? such as rooting and sucking, licking and fussing.?? At the baby???s stomach is small and may take 10-15ml of formula.?? Over the next few days the baby will become more wakeful and feed more frequently, gradually increasing the amounts of formula taken at a feeding.?? Your receptionist scheduler will provideinstructions on how to increase the amount.?? Refer to packaging for formula preparation directions, depending on the type of formula you purchase ??? powder, concentrate or ready to feed. Infant Safety: ALWAYS REMEMBER - BACK TO SLEEP! Babies sleep safest on their backs.?? Every sleep.?? Every time.?? Every nap. Babies need a firm sleep surface with a tight fitting bottom sheet.?? NO loose bedding.?? NO pillows.?? NO bumper pads or rolls.?? NO heavy or fluffy blankets. NO stuffed toys. It is not safe for your baby to sleep in your bed, in a chair, or on a sofa.?? Your baby should notsleep with you or anyone else. Car Seat: Always place your baby in a rear facing car seat in the backseat of the car. Car seat inserts that come with the car seat can be used as they are crash tested with the seat.?? You should not buy additional inserts.?? Dress the baby in a weather appropriate outfit.?? Avoid bulky clothing such as snowsuits or jackets as the baby may squirm in the seat, loosening the shoulder straps and come out of the top of the harness if you need to brake hard or are in an accident.?? Once the baby issecured in the seat you can cover your little one with a blanket if needed.?? If your baby was bornprematurely, follow the directions given to you.?? If you have not already done so, check to make sure your car seat is installed correctly. Check with your local Fire and Police Department to see if they offer car seat inspections at a location close to you. Babies Can Move: ?? Never leave your baby unattended on any surface, raised or flat, or while bathing.?? They can squirm, fall or hurt themselves.?? Always fasten the safety belt when using an infantseat or swing ??? as they may lean forward and fall. Good Handwashing is the number one way you can protect the baby from too?? many germs and prevent infection.?? When family and friends visit ask that they wash their hands before holding your baby.??Also avoid crowds the first month of your baby???s life to protect from colds and flus. Shaking a baby out of frustration can cause severe and lasting damage, even to a baby.?? If you feel you are becoming angry or overwhelmed, place the baby in a safe place and walk away.?? Call a friend or family member.?? If they are not able to offer immediate help call the Parental Stress Hotline at?? , an anonymous 13/06 source of help. Warning Signs to notify your receptionist scheduler of: Most babies develop a small amount of jaundice (a yellowish skin color) in the face and upper chest, by about 3 days of age.?? If the yellow color extends below the baby???s belly or if the baby is very sleepy and not feeding well, call your receptionist scheduler. A rectal temperature of 100.4F as it could be a sign of infection. Projectile vomiting that continues with each feeding could indicate reflux or a problem with the formula. Extreme sleepiness or very fussy. Cold symptoms with nasal stuffiness, especially if the baby is having difficulty feeding. Constipation with hard stools. Blue or dusky color, call 911. If Your Baby Needs to Remain in the Hospital: Please leave your baby???s ID bracelets on if your baby needs to remain in the hospital after you are discharged home. The phone number to NICU is [phone]. The phone number to [facility] is [phone]. The phone number to Lakisha DaveyLynsey 2 is [phone]. moms should pump every 2-3 hours or 8-12 times in 24 hours.?? If unable to place the baby to breast, if you are having difficulty getting the baby to latch on, or if the baby remains inthe hospital after you are discharged ??? bring the pumped milk to the hospital, labeled with name,date and time.?? Carry it in a small cooler or diaper bag with an ice pack and bring it the next time you visit your baby.?? Consultation Services is available if you need to rent or purchase a pump or products.?? Call and leave a message at [phone] ??? press 3 and a party plan sales consultant will return your call that day or the next if you call after 3pm. ? Patient Care team information Care Team Personnel Name: Not on Staff, PCP Position: [facility] Physician (General Medicine) Member Role: PCP Name: Therese Garcia RN Position: [facility] OB RN Member Role: Patient Care Provider Name: Kiki Paz RN Position: [facility] OB RN Member Role: Patient Care Provider Care Team Related Persons Name: WAI LAGOS Address: [place] [address] Name: FABIAN MURRAY Address: [place] Address: home [address] [place] [address] [place] Name: SKYE KRAFT Address: [employer] Address: home [address] [place], [place] Name: DIONNE KRAFT Address: home [address] [place], [place]
--- OUTSIDE RECORDS SUMMARY | 2024-05-07 19:18 | XMS_ITS | Continuity of Care Document ---
Author Organization [facility] Address [address] [place] [address]- Care Team Providers Care Spray Machine Operator Name Role Phone Not on Staff, PCP Primary Care Physician Unavail able Encounter [facility] Date(s): 03/02/22 - 05/20/[address] [address]- Attending Physician: Not on Staff, Attending MD [...]
--- OUTSIDE RECORDS SUMMARY | 2024-05-07 19:18 | XMS_ITS | Continuity of Care Document ---
Author Organization [facility] Address [address] [place] [address]- Care Team Providers Care Escalator Attendant Name Role Phone Not on Staff, PCP Primary Care Physician Unavail able Encounter [facility] Date(s): 06/09/21 - 09/17/21 [facility] [address] [place] [address]- Attending Physician: Andrew SORIANO, Jasmyne Arora Allergies, Adverse Reactions, Alerts No Known Medication [...]
--- OUTSIDE RECORDS SUMMARY | 2024-05-07 19:18 | XMS_ITS | Continuity of Care Document ---
Author Organization [facility] Address [address] [place] [address]- Care Team Providers Care Data Management Specialist Name Role Phone Not on Staff, PCP Primary Care Physician Unavail able Encounter [facility] Date(s): 01/10/24 - 01/10/[address] [address]- Encounter Diagnosis Shortness of breath(Final) - 01/10/24 Discharge Disposition: A-D/C Home Attending Physician: Faith Rodriguez MD Admitting Physician: Faith Rodriguez MD Referring Physician: Not on Staff, Referring [...] I Confirmed Active Vaccination reaction Confirmed Active Results Radiology Reports * Exam Date Time Procedure Performing Provider Status 01/10/24 3:[address] Angio Chest Chelsea Kirby; Auth ( Verified) Notes: (CT Angio Chest) Reason For Exam: PE suspected, Intermediate prob, positive D-dimer;Other: RESULT: CT Angio Chest EXAMINATION: CT Angio Chest INDICATION: SOB and palpitations. 33 weeks . Reason: PE suspected, Intermediate prob, positive D-dimer; Clinical Question(s): Pulmonary Embolism TECHNIQUE: Spiral CTA of the chest was performed after rapid IV contrast administration without cardiac gating, triggered by an EDWARD on the main pulmonary artery. Images are formatted in multiple planes using 2-D multiplanar and 3-D maximum intensity projection. 60 cc of Omnipaque 300 was administered intravenously. Weight-based protocol using automatic tube modulation was used to optimize exposure parameters. CTDIvol Body: 7.37 mGy, DLP Body: 345 mGy*cm. COMPARISONS: None. ANGIOGRAPHIC FINDINGS: Evaluation is moderately limited by motion artifact. Within these limitations, no evidence of pulmonary embolism. No evidence of right heart strain. NON-ANGIOGRAPHIC FINDINGS: Neurodiagnostic Technician View Findings, Lines and Tubes: None. Trachea and Airways: Patent without evidence of tracheal or endobronchial lesion. Lungs and Pleura: 2 mm nodule in the left upper lobe (405:24), likely benign. No follow-up needed. The lungs are otherwise clear. No effusion or pneumothorax. Mediastinum and saulo: No mass or hematoma. No mediastinal or hilar lymphadenopathy. No esophageal abnormality. Partially imaged thyroid is unremarkable. Heart: Heart is normal in size. No pericardial effusion. No coronary arterial calcifications. Chest Wall Soft Tissues: Normal. Diaphragm and upper abdomen: No significant abnormality. Bones: No acute abnormality. IMPRESSION: Moderate respiratory motion artifact within these limitations, no evidence of pulmonaryembolism or right heart strain. I have personally reviewed the images and I agree with this report. WSN: [id number] Ordering Physician: Sherly Conner Dictated By: Trang Cote MD Dictated Date/Time: 01/10/24 4:02 pm Reviewed By: Klever Early MD Signed By: Klever Early MD Signed Date/Time: 01/10/24 4:07 pm Transcribed By: GLADYS Transcribed Date/Time: 01/10/24 3:33 pm * Exam Date Time Procedure Performing Provider Status 01/10/24 2:00 PM Chest 2 Views Frontal and Lat Pam Fitzpatrick; Auth (Verified) Notes: (Chest 2 Views Frontal and Lat) Reason For Exam: Shortness of Breath RESULT: Chest 2 Views Frontal and Lat Chest 2 Views Frontal and Lat Reason: Palpitations and Shortness of Breath; Clinical Question(s): Pneumonia COMPARISON: 12/15/2020. FINDINGS: LINES AND TUBES: None. LUNGS AND PLEURA: Clear lungs. Normal pulmonary vascularity. No pleural effusion. No pneumothorax. HEART, MEDIASTINUM AND SAULO: Heart is normal in size. Normal mediastinal and hilar contour. BONES AND SOFT TISSUES: No acute abnormality. IMPRESSION: No acute abnormality. I have personally reviewed the images and I agree with this report. WSN: [id number] Ordering Physician: Faith Fortune Dictated By: Amadou Mata MD Dictated Date/Time: 01/10/24 2:18 pm Reviewed By: Ravi Arroyo MD, V Signed By: Ravi Arroyo MD, V Signed Date/Time: 01/10/24 2:23 pm Transcribed By: GLADYS Transcribed Date/Time: 01/10/24 2:13 pm Vital Signs Most recent to oldest [Reference Range]: 1 2 Height 150 cm (01/10/24 4:46 PM) 150 cm (01/10/24 12:14 PM) Oxygen Saturation [94-100 %] 99 % (01/10/24 4:46 PM) 99 % (01/10/24 12:14 PM) Pulse Rate [55-90 bpm] 95 bpm *H* (01/10/24 4:46 PM) 106 bpm *H* (01/10/24 12:14 PM) Blood Pressure [90-138/55-84 mm Hg] 106/ 55mm Hg (01/10/24 4:46 PM) 106/70mm Hg (01/10/24 12:14 PM) Respiratory Rate [16-30 br/min] 18 br/mi n (01/10/24 4:46 PM) 20 br/min (01/10/24 12:14 PM) Temperature [96.8-100.4 DegF] 99.1 DegF (01/10/24 4:46 PM) 97.9 DegF (01/10/24 12:14 PM) Mode of Delivery (Oxygen) Room air (01/10/24 4:46 PM) Room air (01/10/24 12:14 PM) Blood pressure sites Arm, right (01/10/24 4:46 PM) Arm, left (01/10/24 12:14 PM) Temperature Route Oral (01/10/24 4:46 PM) Oral (01/10/24 12:14 PM) Dry Weight 81 kg (01/10/24 12:14 PM) Social History Social History Type Response Smoking Status Never (less than 100 in lifetime) entered on: 09/15/21 Sex Patient Care team information Care Team Personnel Name: Not on Staff, PCP Position: S Physician (General Medicine) Member Role: PCP Care Team Related Persons Name: WAI LAGOS Address: [place] [address] Name: SKYE KRAFT Address: [employer] Address: home [address] [place] [address] Name: DIONNE KRAFT Address: [place] [address] [place] [address]
--- OUTSIDE RECORDS SUMMARY | 2024-05-07 19:19 | XMS_ITS | Continuity of Care Document ---
Author Organization [facility] Address [address] [place] [address]- Care Team Providers Care Lost Charge Card Clerk Name Role Phone Not on Staff, PCP Primary Care Physician Unavail able Encounter [facility] Date(s): 07/06/23 - 08/05/[address] [address]- Allergies, Adverse Reactions, Alerts No Known Allergies [...] Team Related Persons Name: WAI LAGOS Address: [place] [address] Name: SKYE KRAFT Address: [employer] Address: [place] [address] [place] [address] [place] Name: DIONNE KRAFT Address: [address] [address]
--- OUTSIDE RECORDS SUMMARY | 2024-05-07 19:19 | XMS_ITS | Continuity of Care Document ---
Author Organization [facility] ter Address [address] [place] [address]- Care Team Providers Care Theology Professor Name Role Phone Not on Staff, PCP Primary Care Physician Unavail able Encounter [facility] Date(s): 01/27/24 - 01/27/[address] [address] Discharge Disposition: A-D/C Home Attending Physician: [...] [Reference Range]: 1 Oxygen Saturation [94-100 %] 99 % (01/27/24 9:42 AM) Blood Pressure [90-138/55-84 mm Hg] 111/ 75mm Hg (01/27/24 9:42 AM) Respiratory Rate [16-30 br/min] 20 br/mi n (01/27/24 9:42 AM) Temperature [96.8-100.4 DegF] 98.1 DegF (01/27/24 9:42 AM) Blood pressure sites Arm, right (01/27/24 9:42 AM) Temperature Route Oral (01/27/24 9:42 AM) Dry Weight 79.1 kg (01/27/24 9:42 AM) Social History Social History Type Response Smoking Status Never (less than 100 in lifetime) entered on: 09/15/21 Sex Note * Angela Powell V: PERFORM Event Display: Discharge/Transfer Note Hospital Authored Date: [id number] Nursing Discharge Note Entered On: 01/27/2024 11:08 EST Performed On: 01/27/2024 11:08 EST by Angela Powell V Nursing Discharge Note 2 Discharge Time : 01/27/2024 11:08 EST Discharge Level of Care at Discharge : Home/Fci/Foster Care Patient Left Unit Via : Ambulatory Patient Accompanied Off Unit with : Parent DC Instructions Provided & Signed by Pt : Yes Patient Understands D/C Instructions : Yes Patient Instructions Discharge Signed : Yes Did Pt have Specialty Bed or Wound Vac : No Angela Powell V - 01/27/2024 11:08 EST * Angela Powell V: PERFORM Event Display: Patient Education/Instruction Authored Date: [id number] Inpatient Adult Discharge Instructions. [address] [address] Name: FABIAN HOUGH : 1995?? Visit: 01/27/2024 09:17?? Current Date: 01/27/2024 10:31 ?? Account: [id number]?? Inpatient Adult Discharge Instructions We would like [...] and their families. Surveys are administered by [employer] ?? If further treatment with your primary care physician or another doctor is recommended, it is important for you to keep the appointment. Call your primary care physician or return to the Emergency Department immediately if your condition worsens, fails to improve, or new symptoms develop. If you need to find a doctor, you can call [facility] [employer]ine for a referral at [phone] or toll free at [phone] or log in to [email or web address].. ?? [facility], in keeping with [facility] guidance, no longer requires face masks [...] a health care jaden of your choosing. [employer] is a website that allows you to securely view your medical information including your hospital discharge summary, office visit summaries, medications and follow-up visits. You can also request appointments, renew medications, and request access to your medical information using a health care jaden of your choosing, or just ask a question. You can enroll at [email or web address] or register during your next office visit. You have been discharged from [facility], Patient Care Unit: [id number]??. If you have any questions regarding these instructions, including results of studies pending, afteryou leave, please call us and we will be happy to assist you 13/06. [facility] Your Care Team Attending Physician Faith Rogers MD?? Consulting Providers Faith Rogers MD?? Tests Performed Below is a partial list of the tests performed during your hospitalization. You may have had other tests and procedures not included in this list. Please discuss all test results with your provider. Group B Strep by PCR?-- Results Pending -- You will be contacted within 72 hours with your results. Group B Strep by PCR?? Primary Care Provider Not on Staff, PCP?? Advance Directive Health Care Proxy on File Yes - Health Care Proxy Discharge Vitals Temperature: 98.1 DegF Respiratory Rate: 20 br/min Systolic Blood Pressure: 111 mm Hg Diastolic Blood Pressure: 75 mm Hg Oxygen Saturation: 99 % Studies Pending All studies ordered during this hospital stay have been completed unless listed below. Please discuss all pending results with your provider listed above in these instructions. ?? Group B Strep by PCR?? What to do next Instructions From Your Doctor ?? Orders?? You Need to Schedule the Following Appointments Follow Up with??Sue SORIANO, Faith Why: Please follow up at your next scheduled appointment Where: [address] [place] [address] [address] [facility] [place] [address]- Discharge Medications FABIAN MURRAY :1995 Visit Date:01/27/2024 Medications: Please continue your medications until treatment [...] Discharge Instructions. Web[employer] Ignite Patient Education - Kick Counts?? [employer] Patient Education - Recognizing Labor?? Valuables and Belongings I fully understand and agree that [facility] accepts no responsibility for all my [...] Status?? Pulmonary Rehab Discharge Status?? Respiratory Rate: 20 br/min ? Common Emergency Awareness Tips IS [...] are strongly encouraged to quit. Please call [facility] [employer] Link at [phone] or [phone]) or log in to [email or web address] for referrals to smoking cessation programs. ?? 988 Suicide & Crisis Lifeline is available 13/06 if you or someone you know needs to find a reason to keep living. By calling 988 you'll be connected to a skilled, trained counselor at a crisis center in your area. INPATIENT DISCHARGE INSTRUCTIONS SIGNATURE PAGE FABIAN MURRAY Location:[facility] Registration Date and Time:01/27/2024 09:17 EST Primary Care Physician: Not on Staff, PCP Attending Physician: Sue SORIANO, Faith, I FABIAN MURRAY, have received the above patient education materials/instructions and have verbalized understanding. If ambulance or transport services are being used I further acknowledge being given a choice of service. ?? If you need to contact me, please call me at this number: . Patient/Loft Worker Head Name: Patient/Loft Worker Head Signature: Relationship to Patient: Witness Name/Signature: Date: * Angela Powell V: PERFORM Event Display: Patient Education Leaflets Authored Date: [id number] Kick Counts ?? [address] Kick Counts It???s normal to worry about [...] day. ?? Last Reviewed Date: 2022 ?? 9057-4734 [employer]. All rights reserved. This information is not intended as a substitute for professional medical care. Always follow your healthcare professional's instructions. ?? * Angela Powell V: PERFORM Event Display: Patient Education Leaflets Authored Date: [id number] Recognizing Labor ?? [address] Recognizing Labor The beginning of labor is [...] contraction. ?? Last Reviewed Date: 2022 ?? 1576-6767 [employer]. All rights reserved. This information is not intended as a substitute for professional medical care. Always follow your healthcare professional's instructions. ?? Patient Care team information Care Team Personnel Name: Not on Staff, PCP Position: [facility] Physician (General Medicine) Member Role: PCP Name: Angela Powell V Position: [facility] OB RN Member Role: Patient Care Provider Care Team Related Persons Name: WAI LAGOS Address: [place] [address] Name: SKYE KRAFT Address: [employer] Address: home [address] [place], [place] Name: DIONNE KRAFT Address: [place] [address] [place] [address]
--- OUTSIDE RECORDS SUMMARY | 2024-05-07 19:19 | XMS_ITS | Continuity of Care Document ---
Author Organization [facility] Address [address] [place] [address]- Care Team Providers Care Electromechanisms Design Drafter Name Role Phone Not on Staff, PCP Primary Care Physician Unavail able [facility]counter [facility] Date(s): 12/01/21 - 12/31/[address] [address]- Allergies, Adverse Reactions, Alerts No Known Allergies [...] Refills, Maintenance, 09/15/21 14:32:00 EDT, Tablet, [id number], Partial fill upon patient request if the [...]
--- OUTSIDE RECORDS SUMMARY | 2024-05-07 19:19 | XMS_ITS | Continuity of Care Document ---
Author Organization [facility] Address [address] [place] [address]- Care Team Providers Care Structural Steel Engineer Name Role Phone Not on Staff, PCP Primary Care Physician Unavail able Encounter [facility] Date(s): 01/30/24 - 04/25/[address] [address]- Attending Physician: Salvador Rae MD Admitting Physician: Salvador Rae MD Referring Physician: Cristnia Severino CNM Allergies, Adverse Reactions, Alerts No Known Allergies [...] Team Related Persons Name: WAI LAGOS Address: [place] [address] Name: ELISEO KRAFT Address: [place] Address: [address] [address] [place] Name: SKYE KRAFT Address: [employer] Address: home [address] [place], [place] Name: DIONNE KRAFT Address: [address] [place] [address]
[2024-05-07 19:34] LABS: HCG Quantitative < 2 mIU/mL
--- NOTE | 2024-05-07 19:38 | PC.NURSE ---
Patient states that she now feels much better, able to speak in complete sentences. States she and her decided to separate yesterday and she has a 2 month old at home, feeling increased stress.
[2024-05-07] MEDS: Potassium Chloride ER 20 MEQ TAB.ER.PRT 60 MEQ PO (20:39)
[2024-05-07 20:59] LABS: Appearance Urine Cloudy; Color Urine Dark Yellow; Glucose Urine UA Negative (Negative); Leukocyte Esterase Urine Negative (Negative); Nitrite Urine Negative (Negative); PH 5.5 (5.0-9.0); Specific Gravity - Urine >= 1.030 (1.005-1.025); Urine Blood Negative (Negative); Urine Ketones 40 mg/dL (Negative); Urine Protein Trace mg/dL (Neg-Trace)
[2024-05-07 21:00] LABS: UPreg QC Valid YES; Urine Pregnancy NEGATIVE (NEGATIVE)
[2024-05-07] MEDS: Lidocaine 4 % Patch ADH..PATCH 1 PATCH TRANSDERMA (21:10)
[2024-05-07] MEDS: Acetaminophen 325 MG TABLET 975 MG PO (21:10)
[2024-05-07] MEDS: Ibuprofen 400 MG TABLET PO (21:10)
[2024-05-07 21:11] LABS: Amphetamine Screen Urine Not Detected (Not Detect); Barbiturates, Urine Not Detected (Not Detect); Benzodiazepines Screen Urine Not Detected (Not Detect); Buprenorphine Scr Not Detected (Not Detect); Cannabinoid Screen Urine POSITIVE (Not Detect); Cocaine Screen Urine Not Detected (Not Detect); Fentanyl, urine Not Detected (Not Detect); Methadone Screen, Urine Not Detected (Not Detect); Opiate Screen Urine Not Detected (Not Detect); Oxycodone Screen Urine Not Detected (Not Detect); Phencyclidine Screen Urine Not Detected (Not Detect)
--- NOTE | 2024-05-07 21:17 | PC.NURSE ---
Patient spoke to care team, per patient they are attempting to contact patient's and will be letting her go home with him, attempted to contact care team via phone, no answer. Patient does not wish to change into hospital attire until plan to stay is definite, will wait until more information from care team is available.
[2024-05-07 21:22] LABS: Bacteria Urine Trace (None Seen); RBC Urine 0-2 /HPF (0-2); WBC Urine 0-5 /HPF (0-5)
[2024-05-07 21:41] VITALS: BP 113/68; PULSE 60; RESP 18; TEMP 36.4; O2SAT 98
[2024-05-07 21:53] VITALS: BP 113/68; PULSE 60; RESP 18; TEMP 36.4; O2SAT 98
== END 2024-05-07 21:54 | disposition home or self-care (01) ==
PROVIDERS: Nurse Practitioner Family; Emergency Provider Student in an Organized Health Care Education/Training Program
DX: S00.03XA Contusion of scalp, initial encounter (principal); F43.9 Reaction to severe stress, unspecified; F12.10 Cannabis abuse, uncomplicated; X58.XXXA Exposure to other specified factors, initial encounter; Y93.9 Activity, unspecified; Y92.9 Unspecified place or not applicable; Y99.8 Other external cause status; Z79.899 Other long term (current) drug therapy
CPT/HCPCS: 36415; 70450; 72125; 80053; 80307; 81001; 81025; 83735; 84702; 85025; 99283; 99284; S9485

== ENCOUNTER 2024-05-27 08:28 | Emergency (ER) | payer SELFPAY ==
--- NOTE | ~2024-05-27 | CT_ITS ---
CT ORBITS WITH CONTRAST HISTORY: 28 years old Female, right eye pain COMPARISON: CT head 02/05/2024 TECHNIQUE: CT images of the orbits were acquired with 85 mL Omnipaque [address] examination was performed using dose optimization techniques as appropriate, variously including the following: *Automated exposure control *Adjustment of mA and/or kV according to patient size (this includes techniques or standardized protocols for targeted exams where dose is matched to indication/reason for exam; i.e. extremities or head) *Use of iterative reconstruction technique DLP: 258.08 mGy-cm mGy-cm FINDINGS: No evidence of globe hemorrhage or lens dislocation. No retrobulbar hematoma or radio-opaque foreign body. Normal symmetric appearance of the extraocular muscles. No abnormal enhancement. No infiltration of the pre- or postseptal fat. The ventricles and sulci are normal in size and configuration without significant volume loss or hydrocephalus. There is no abnormal attenuation within the visualized brain parenchyma. No significant mass effect, or herniation pattern. No abnormal intraparenchymal enhancement within limitations of CT. Right maxillary sinus mucous retention cyst and mild left maxillary sinus mucosal thickening. Osseous structures are intact. CT/CT orbit BI w IV con IMPRESSION: No findings to suggest orbital infection. Right maxillary sinus mucous retention cyst and mild left maxillary sinus mucosal thickening.
[2024-05-27 08:29] VITALS: BP 147/85; PULSE 70; RESP 20; TEMP 37.1; O2SAT 100; BMI 190.9
--- NOTE | 2024-05-27 08:37 | ED.EYEPROB ---
HPI - Eye Problem General Chief complaint: Eye Problems Stated complaint: eye irritation Time Seen by Provider: 05/27/24 08:36 Source: patient and RN notes reviewed Mode of arrival: ambulatory Limitations: no limitations History of Present Illness ED Provider: Chrissie Perea PA-C [facility] Narrative: This is a 28-year-old female, with no known medical problems, who presents emergency department with complaints of right eye pain since waking up this morning. Patient states that she rolled over in bed and noticed severe right-sided eye pain was associated photophobia. She states that she has a history of ulcerations, and states that her symptoms felt similar. She denies any fevers, chills, chest pain, shortness breath, abdominal pain, nausea, vomiting or diarrhea. She denies any eye trauma or foreign body sensation. She states that she does wear contact lenses, denies prolonged contact lens use. MD chief complaint: eye pain Onset description: sudden Duration: constant Location: right eye Eye Symptoms: pain, foreign body sensation and photophobia Place: home Mechanism: none Severity: mild Associated symptoms: none Treatments Prior to Arrival: none Related Data Allergies Allergy/AdvReac Type Severity Reaction Status Date / Time No Known Allergies Allergy Verified 05/27/24 08:32 Review of Systems Review of Systems: Yes all other systems are reviewed and are negative Constitutional: Constitutional: Reports as per [facility] Social History Social History Advance Directives: No Advance Directives Information Provided: No Do you have a plan to hurt others: No Plan Physical Exam Vital Signs: Vital Signs: Last Vital Signs Temp 98.7 F 05/27/24 14:11 Pulse 70 05/27/24 14:11 Resp 20 05/27/24 14:11 BP 147/85 H 05/27/24 14:11 Pulse Ox 100 05/27/24 14:11 O2 Del Method Room Air 05/27/24 14:11 BMI result Body Mass Index 190.9 Const: General: cooperative, comfortable and no acute distress Orientation/consciousness: patient oriented x3 Limitations: no limitations HEENT: Head: Yes normal to inspection, Yes normocephalic and Yes atraumatic Ears: hearing grossly normal bilaterally General nose exam: Normal external nose present Face and sinus: Yes normal facial exam Mouth: Normal oral and palatal mucosa present, oropharynx normal and moist mucous membranes Throat: Yes posterior oropharynx normal Eyes: Other: Right eye intra-ocular pressure is 18 mmHg, left eye 18 mmHg, right eye slightly injected, + photophobia, slight tearing. Mild pain with extraocular movements, however extraocular movements are intact bilaterally. Fluorescein stain with no uptake seen, no ulcerations, or abrasions noted. No eyelid edema or erythema noted. General: appearance normal, both eyes and all related structures Eyelids: Yes eyelids normal Conjunctivae: conjunctivae normal Sclerae: sclerae normal Pupils: Equal, round and reactive pupils present EOM: EOMs intact bilaterally Neck: Neck: Yes normal visual inspection, Yes full ROM and Yes no lymphadenopathy Lymphatic: no lymphadenopathy noted Chest: Chest palpation & inspection: normal inspection of the chest Resp: Effort & Inspection: normal respiratory effort and able to speak in complete sentences Auscultation: clear to auscultation bilaterally, no crackles, no rales, no rhonchi and no wheezes Cardio: Rate: regular rate Rhythm: regular rhythm Heart sounds: S1 normal heart sound present and S2 normal heart sound present GI: Inspection: Yes normal to inspection Skin: General skin exam: no rashes or lesions noted Trauma: no lacerations or abrasions Wounds: no wounds Neuro: General: patient oriented x3 and moves all extremities Cranial nerves: Yes Equal, round and reactive pupils present Extrem: General: Yes normal to inspection Right upper extremity: normal to inspection Left upper extremity: normal to inspection Right lower extremity: normal to inspection Left lower extremity: normal to inspection Course Reevaluation(s) Reevaluation #1: Patient very irritated in regards to wait time for CT scan, she left AMA prior to results. Per nurse, patient's symptoms had improved, she was walking around in the ER, with no photophobia elicited. Medications Administered Discontinued Medications Generic Name Dose Route Start Last Admin Trade Name Freq PRN Reason Stop Dose Admin Fluorescein Sodium 1 strip 05/27/24 08:47 05/27/24 09:07 Fluorescein Sodium Strip EYE-RIGHT 05/27/24 08:48 1 strip ONCE ONE Administration Iohexol 100 ml 05/27/24 12:23 05/27/24 12:23 Iohexol 350 Mg/Ml 100 Ml Infus..Btl IV 05/27/24 12:24 85 ml ONCE ONE Administration Tetracaine HCl 1 drop 05/27/24 08:47 05/27/24 09:07 Tetracaine Hcl/Pf 0.5% Oph Sujey 4 Ml Drops EYE-RIGHT 05/27/24 08:48 1 drop ONCE ONE Administration Medical Decision Making Medical Decision Making [facility] Narrative: this is a 28-year-old female who presents in the emergency department with complaints of right eye pain since waking up this morning. On arrival, patient with eye closed secondary to photophobia. Concerning for acute closed angle glaucoma, intra-ocular pressures were tested immediately and they were 18 mmHg bilaterally. She has no orbital edema or erythema to suggest periorbital cellulitis however given photophobia, tearing, concerning for orbital cellulitis, will obtain visual acuity, as well as CT orbits as well as blood work. Patient is agreeable. Differential Diagnosis Differential Diagnoses: The differential diagnosis associated with the presentation includes acute closure glaucoma - unlikely, periorbital cellulitis, orbital cellulitis, corneal abrasion, cluster headache Admission/Observation Consideration of admission/observation: Escalation of care including admission/observation considered Lab Data [facility] Lab Attestation statement: I reviewed the patient's lab results. No leukocytosis, stable H&H, inflammatory markers within normal limits. No electrolyte deranagements. 05/27/24 09:16 05/27/24 09:16 Labs: Lab Results 05/27/24 Range/Units 09:16 WBC 5.1 (4.8-10.8) X10*3/uL RBC 4.53 (4.20-5.50) X10*6/uL Hgb 13.1 (12.0-16.0) g/dl Hct 37.9 (37.0-47.0) % MCV 83.7 (80.0-98.0) fL MCH 28.9 (27.0-33.0) pg MCHC 34.6 (31.0-35.0) g/dl RDW 14.1 (11.0-16.0) % Plt Count 331 (160-400) X10*3/uL MPV 9.8 (9.4-12.3) fL Immature Gran % (Auto) 0.2 (0.0-0.4) % Neut % (Auto) 56.5 (45-73) % Lymph % (Auto) 34.6 (20-40) % Wilbarger % (Auto) 6.7 (2-11) % Eos % (Auto) 1.4 (0-4) % Baso % (Auto) 0.6 (0-2) % Lymph # (Auto) 1.8 (1.2-4.9) X10*3/uL Wilbarger # (Auto) 0.3 (0.1-1.2) X10*3/uL Eos # (Auto) 0.1 (0.0-0.4) X10*3/uL Baso # (Auto) 0.0 (0.0-0.2) X10*3/uL Abs Immat Gran (auto) 0.01 (0.00-0.03) X10*3/uL Absolute Neuts (auto) 2.9 (2.0-8.3) x10*3/uL Absolute Nucleated RBC 0.000 (0.0-0.012) X10*3/uL Nucleated RBC % (auto) 0.0 (0.0-0.2) /100WBC ESR 9 (0-20) MM/HR Sodium 141 (135-145) mmol/L Potassium 4.2 D (3.3-5.1) mmol/L Chloride 112 H (96-108) mmol/L Carbon Dioxide 21 L (22-29) mmol/L Anion Gap 12 (12-20) BUN 12 (9-16) mg/dL Creatinine 0.72 (0.5-1.4) mg/dL Estim Creat Clear Calc 6.4 Estimated GFR > 60 Random Glucose 111 (60-115) mg/dL Calcium 9.0 D (8.4-10.2) mg/dL Total Bilirubin 0.2 (0.0-1.0) mg/dL Direct Bilirubin < 0.2 (0.0-0.5) mg/dL AST 20 (5-31) U/L ALT 34 H (0-31) U/L Alkaline Phosphatase 83 (39-117) U/L C-Reactive Protein 0.15 (< or = 0.50) mg/dL Total Protein 7.2 (6.5-8.0) g/dL Albumin 4.3 (3.5-5.0) g/dL Beta HCG, Quant < 2 mIU/mL Radiology Impression Discussion of test interpretation with radiology: I have reviewed the radiologist's reading. Radiologist Impression: CT/CT orbit BI w IV con IMPRESSION: No findings to suggest orbital infection. Right maxillary sinus mucous retention cyst and mild left maxillary sinus mucosal thickening. Dictated By: Vivian Johnson MD Discharge Plan Discharge Clinical Impression: Acute eye pain Patient Disposition: Left Against Medical Advice Stand Alone Forms: Against Medical Advice Interventions: ED Discharge Assessment Last Done: 05/27/24 14:11 Discharge Date/Time: 05/27/24 14:12 Print Language: Sinhala
[2024-05-27] MEDS: Fluorescein Sodium STRIP 1 STRIP EYE-RIGHT (09:07)
[2024-05-27] MEDS: Tetracaine HCl/PF 0.5% Oph Sol 4 ML DROPS 1 DROP EYE-RIGHT (09:07)
[2024-05-27 09:21] LABS: MANUAL DIFF FLAG NO
[2024-05-27 09:32] LABS: Basophils Percent Auto 0.6 % (0-2); Eosinophils Absolute Auto 0.1 X10*3/uL (0.0-0.4); Eosinophils Percent Auto 1.4 % (0-4); Hematocrit 37.9 % (37.0-47.0); Hemoglobin 13.1 g/dl (12.0-16.0); Imm Gran Abs Auto 0.01 X10*3/uL (0.00-0.03); Imm Gran Pct Auto 0.2 % (0.0-0.4); Lymphocytes Absolute Auto 1.8 X10*3/uL (1.2-4.9); Lymphocytes Percent Auto 34.6 % (20-40); Mean Corpuscular HGB Conc 34.6 g/dl (31.0-35.0); Mean Corpuscular Hemoglobin 28.9 pg (27.0-33.0); Mean Corpuscular Volume 83.7 fL (80.0-98.0); Mean Platelet Volume 9.8 fL (9.4-12.3); Monocytes Absolute Auto 0.3 X10*3/uL (0.1-1.2); Monocytes Percent Auto 6.7 % (2-11); Neutrophils Absolute Auto 2.9 x10*3/uL (2.0-8.3); Neutrophils Percent Auto 56.5 % (45-73); Platelet Count 331 X10*3/uL (160-400); Red Blood Count 4.53 X10*6/uL (4.20-5.50); Red Cell Distribution Width 14.1 % (11.0-16.0); White Blood Count 5.1 X10*3/uL (4.8-10.8)
[2024-05-27 09:34] LABS: Alanine Aminotransferase 34 U/L (0-31); Albumin Level 4.3 g/dL (3.5-5.0); Alkaline Phosphatase 83 U/L (39-117); Anion Gap 12 (12-20); Aspartate Amino Transferase 20 U/L (5-31); Bilirubin Direct < 0.2 mg/dL (0.0-0.5); Bilirubin Total 0.2 mg/dL (0.0-1.0); Blood Urea Nitrogen 12 mg/dL (9-16); C Reactive Protein 0.15 mg/dL (< or = 0.50); Carbon Dioxide 21 mmol/L (22-29); Chloride 112 mmol/L (96-108); Creatinine Clr Calc Pharmacy 6.4; Estimated Glomerular Filt Rate > 60; Glucose Random 111 mg/dL (60-115); Potassium 4.2 mmol/L (3.3-5.1); Sodium 141 mmol/L (135-145); Total Protein 7.2 g/dL (6.5-8.0)
[2024-05-27 10:00] LABS: Erythrocyte Sedimentation Rate 9 MM/HR (0-20)
[2024-05-27 12:00] LABS: HCG Quantitative < 2 mIU/mL
[2024-05-27] MEDS: iohexoL 350 MG/ML 100 ML INFUS..BTL IV (12:23)
--- NOTE | 2024-05-27 14:10 | PC.NURSE ---
Pt very upset, comes to RN station and reports she is leaving. Pt agrees to leave AMA, cannot stay any longer, very upset. IV removed and pt signed AMA. Provider alerted of situation
[2024-05-27 14:11] VITALS: BP 147/85; PULSE 70; RESP 20; TEMP 37.1; O2SAT 100
== END 2024-05-27 14:12 | disposition left against medical advice (07) ==
PROVIDERS: Physician Assistant Medical; Emergency Provider Emergency Medicine
DX: H57.11 Ocular pain, right eye (principal); H53.141 Visual discomfort, right eye
CPT/HCPCS: 36415; 70481; 80048; 80076; 84702; 85025; 85652; 86140; 99284; Q9967

== ENCOUNTER 2025-04-09 07:59 | Emergency (ER) | payer OTHER, SELFPAY ==
[2025-04-09 08:01] VITALS: BP 118/68; PULSE 87; RESP 16; TEMP 36.2; O2SAT 96; BMI 32.1
[2025-04-09 08:24] LABS: IDNOW Serial# 58CA691E; Strep A Nucleic Acid Positive (Negative)
--- NOTE | 2025-04-09 08:27 | ED.URI ---
HPI - URI/Sore Throat General Chief Complaint: Upper Respiratory Symptoms Stated Complaint: Sore throat, SOB Time Seen by Provider: 04/09/25 08:20 Source: patient Mode of arrival: ambulatory Limitations: no limitations History of Present Illness ED Provider: DR. Sagastume HPI Narrative: 29-year-old female came in for evaluation of sore throat x2 weeks on and off, no recent travel, no sick contacts, no fever, no chills. No SOB, no difficulty swallowing, able to swallow own saliva. Patient stated that she is 2nd trimester , no abdominal pain, no vaginal bleed or discharge. Related Data Previous Rx's ?Medication ?Instructions ?Recorded amoxicillin 500 mg tablet 500 mg PO Q12H #14 tabs 04/09/25 Allergies Allergy/AdvReac Type Severity Reaction Status Date / Time No Known Allergies Allergy Verified 04/09/25 08:08 Review of Systems Review of Systems: All other systems are reviewed and are negative Constitutional: Reports as per HPI and Reports no additional constitutional complaints Eyes: Reports as per HPI and Reports no additional eye complaints Reports system reviewed and no additional complaints, except as documented Cardiovascular: Reports as per HPI and Reports no additional cardiovascular complaints Respiratory: Reports as per HPI and Reports no additional respiratory complaints Gastrointestinal: Reports as per HPI and Reports no additional gastrointestinal complaints Genitourinary: Reports no additional female genitourinary complaints Musculoskeletal: Reports no additional musculoskeletal complaints Skin/Breast: Reports system reviewed and no additional complaints, except as docu Psychiatric: Reports no additional psychiatric complaints Endocrine: Reports no additional endocrine complaints Hematologic/Lymphatic: Reports no additional hematologic/lymphatic complaints Allergic/Immunologic: Reports no additional allergic/immunologic complaints Reports system reviewed and no additional complaints, except as documented and Reports Abnormal speech present [facility] Social History Social History Advance Directives: No Advance Directives Information Provided: Yes Physical Exam Vital Signs: Vital Signs: Last Vital Signs Temp 97.1 F 04/09/25 08:01 Pulse 87 04/09/25 08:01 Resp 16 04/09/25 08:01 BP 118/68 04/09/25 08:01 Pulse Ox 96 04/09/25 08:01 O2 Del Method Room Air 04/09/25 08:01 BMI result Body Mass Index 32.1 Vital signs have been reviewed and appear to be correct. Blood pressure elevated. Heart rate normal. Respiratory rate normal. Temperature normal. Oxygen saturation normal. Appearance: Alert. Oriented X3. No acute distress. Head: Normal external exam. Normocephalic. Atraumatic. No Fernandes signs noted. No raccoon eyes noted Eyes: PERRLA. EOMI. Conjunctiva and sclera normal. Eyelids normal. ENT: TM's Normal. Pharynx normal. Uvula midline. Moist mucous membranes. No trismus noted. No drooling noted. No muffled voice noted. Neck: Normal inspection. Neck supple. FROM. No adenopathy. Thyroid Normal. No meningeal signs. No neck mass noted. CVS: Normal heart rate and rhythm. Heart sound normal. No murmurs noted. Pulses normal throughout. Respiratory: No respiratory distress. Painless inspiration. Breath sounds normal. No wheezes/rales/rhonchi noted. Chest nontender. No accessory muscle usage noted or decreased air movement noted. Abdomen: Soft and nontender. Bowel sounds normal in all 4 quadrants. No distention noted. No organomegaly noted. No visible injury noted. Back: No CVA tenderness. Full range of motion noted. Skin: Skin warm and dry. Normal skin color. Normal skin turgor. No rashes/lesions/lacerations noted. Extremities: No lower extremity edema. Extremities exhibit normal range of motion. Extremities nontender. Neuro: Oriented X 3. Cranial nerve exam: II-XII are grossly intact No motor deficit. No sensory deficit. Reflexes normal. Course Reevaluation(s) Reevaluation #1: strep pharyngitis. Start on amoxicillin. No abdominal pain, no vaginal bleeding. Time: 08:34 Medical Decision Making Differential Diagnosis Differential Diagnoses: The differential diagnosis associated with the presentation includes ( Strep pharyngitis, influenza a, COVID-19 infection, RSV.) Admission/Observation Consideration of admission/observation: Escalation of care including admission/observation considered Lab Data [facility] Lab Attestation statement: I reviewed the patient's lab results. Labs: Lab Results 04/09/25 Range/Units 08:15 S. pyogenes GrpA RICARDO Positive A (Negative) Discharge Plan Discharge Clinical Impression: Strep pharyngitis Patient Disposition: Home, Self-Care Instructions: Pharyngitis (ED) Prescriptions: New amoxicillin 500 mg tablet 500 mg PO Q12H Qty: 14 0RF Print Language: Khmer
[2025-04-09 08:58] LABS: Influenza A PCR NEGATIVE (Negative); Influenza B PCR NEGATIVE (Negative); Resp Syncy Virus RNA Qual PCR NEGATIVE (Negative); SARS COV2 PCR INHOUSE NEGATIVE (Negative)
[2025-04-09] MEDS: Amoxicillin 500 MG CAPSULE PO (09:22)
[2025-04-09 09:26] VITALS: BP 118/68; PULSE 87; RESP 16; TEMP 36.2; O2SAT 96
== END 2025-04-09 09:27 | disposition home or self-care (01) ==
PROVIDERS: Emergency Provider Emergency Medicine
DX: J02.0 Streptococcal pharyngitis (principal); R06.02 Shortness of breath; Z03.818 Encounter for observation for suspected exposure to other biological agents ruled out
CPT/HCPCS: 0241U; 87651; 99282; 99283

== ENCOUNTER 2025-04-16 08:03 | Emergency (ER) | payer OTHER, SELFPAY ==
[2025-04-16 08:09] VITALS: BP 111/62; PULSE 83; RESP 16; TEMP 36.4; O2SAT 98; BMI 32.9
[2025-04-16 10:00] VITALS: BP 118/70; PULSE 71; RESP 13; TEMP 36.7; O2SAT 99
--- NOTE | 2025-04-16 10:28 | ED.GENADULT ---
HPI - General Adult General Chief complaint: Skin/Abscess/Foreign Body Stated complaint: Rash all over body Time Seen by Provider: 04/16/25 09:24 Source: patient Mode of arrival: ambulatory Limitations: no limitations History of Present Illness ED Provider: Sukumar Talley HPI narrative: 29 yold female 15 weeks presents to the ED for generalized itchy rash that been occurring the past two weeks. Patient admits to going to the [facility] with her and but had long pants and shirts on. Patient rash on legs, hands, feet, and arms. patient maybe a bug bit her while hiking. patient's found a tick on her back this past tuesday. patient states never having fever, chills, bodyaches, weaknes, malaise, abdominal pain, or vaginal bleeding. Related Data Previous Rx's ?Medication ?Instructions ?Recorded amoxicillin 500 mg tablet 500 mg PO Q12H #14 tabs 04/09/25 prednisone 20 mg tablet 40 mg (2 x 20 mg) PO DAILY 5 days 04/16/25 #10 tabs Allergies Allergy/AdvReac Type Severity Reaction Status Date / Time No Known Allergies Allergy Verified 04/16/25 08:10 Review of Systems Review of Systems: generalized itchy rash Yes all other systems are reviewed and are negative PMFSH Social History Social History Unable to assess alcohol history related to: Unable to respond Smoked in Last 30 Days: No Use of substances other than those prescribed or required for medical reasons: No Advance Directives: No Advance Directives Information Provided: Yes Patient : Yes Physical Exam ED Vital Signs: Vital Signs - 24 hr 04/16/25 08:09 04/16/25 10:00 04/16/25 12:00 Temperature 97.5 F 98.1 F 98.2 F Pulse Rate 83 71 Respiratory Rate 16 13 13 Blood Pressure 111/62 118/70 122/78 Pulse Oximetry 98 99 100 Oxygen Delivery Method Room Air Room Air Room Air 04/16/25 12:27 04/16/25 12:43 Temperature 98.2 F 98.2 F Pulse Rate 79 79 Respiratory Rate 13 13 Blood Pressure 122/78 122/78 Pulse Oximetry 100 100 Oxygen Delivery Method Room Air Room Air BMI result Body Mass Index 32.9 Const General: cooperative, healthy appearing, comfortable, no acute distress, well developed, alert, awake and Physically active Orientation/consciousness: patient oriented x3 HENDC Other: Negative for lip swelling, tongue swelling, drooling, change in voice, or uvula swelling Head: Yes normal to inspection, Yes No palpable skull fracture present, Yes normocephalic and Yes atraumatic Eyes General: appearance normal, both eyes and all related structures Neck Neck: Yes normal visual inspection, Yes full ROM, Yes no lymphadenopathy, Yes no meningeal signs, Yes trachea midline, Yes supple, No anterior neck swelling and No tender Chest Chest palpation & inspection: normal inspection of the chest and normal palpation of entire chest wall Resp Effort & Inspection: normal respiratory effort and able to speak in complete sentences Auscultation: clear to auscultation bilaterally Cardio Jugular venous distension: no JVD Heart sounds: S1 normal heart sound present and S2 normal heart sound present GI Inspection: Yes normal to inspection Palpation (GI): Soft to palpation, not firm, nontender, no guarding and not rigid General: Yes no CVA tenderness Back/Spine/Pelvis Back: no CVA tenderness and No back tenderness Skin Other: itchy red uticaria like rash on feet and feet soles, bilateral upper extremities, and soles of hands. ALso rash on thighs Full body images: 1. Itchy erythematous utcaria like rash. no erythema marginatum. no ecchymosis, pus discharge, foul odor, or red streaks 2. Itchy erythematous utcaria like rash. no erythema marginatum. no ecchymosis, pus discharge, foul odor, or red streaks 3. Itchy erythematous utcaria like rash. no erythema marginatum. no ecchymosis, pus discharge, foul odor, or red streaks 4. Itchy erythematous utcaria like rash. no erythema marginatum. no ecchymosis, pus discharge, foul odor, or red streaks 5. Itchy erythematous utcaria like rash. no erythema marginatum. no ecchymosis, pus discharge, foul odor, or red streaks 6. Itchy erythematous utcaria like rash. no erythema marginatum. no ecchymosis, pus discharge, foul odor, or red streaks Neuro General: patient oriented x3, gait normal, tone normal, moves all extremities, Normal light touch and pain sensation, no meningeal signs, no focal motor deficits, CN's II-XI intact bilaterally and normal sensation to monofilament Extrem Other: see skin General: Yes normal to inspection, Yes full ROM and Yes capillary refill normal Medications Administered Discontinued Medications Generic Name Dose Route Start Last Admin Trade Name Hailey PRN Reason Stop Dose Admin Doxycycline Monohydrate 200 mg 04/16/25 12:13 04/16/25 12:25 Doxycycline Monohydrate 100 Mg Capsule PO 04/16/25 12:14 200 mg ONCE ONE Administration Prednisone 40 mg 04/16/25 10:45 04/16/25 10:51 Prednisone 20 Mg Tablet PO 04/16/25 10:46 40 mg ONCE ONE Administration Medical Decision Making Medical Decision Making MDM Narrative: 29-year-old 15 week female without any complaints presents to ED for generalized achiness for the past 2 weeks after going to the [facility] with . Patient denies any lip swelling, tongue swelling, shortness of breath. Patient denies any fever chills or malaise. Patient did not find her tick on herself this past Tuesday. Probably allergic reaction but will do labs check for tick underlying bacterial and RPR. No need for pelvic exam or ultrasound. Patient is not have any patient's complaints. 11:54am: Patient Lyme tick RPR levels are pending. CBC shows anemia which patient does state she has a history of. Patient denies any rectal bleeding, vaginal bleeding, dizziness, headache, nausea, vomiting, chest pain or shortness of breath. Patient has elevated ESR and CRP which may be possibly indicate vasculitis. Up-to-date states ESR CRP slightly elevated in , but patient is ESR is 37 and CRP 1.95. Not suspecting septic joint or HELLP syndrome. Not suspecting Chacorta Sharath syndrome. Patient refused rectal exam. Not suspecting syphilis. Due to patient stating tick was found on her migraine prophylactic doxycycline 1 dose. No need for ultrasound patient denies any abdominal pain or vaginal bleeding. Patient will be discharged with Benadryl and prednisone. History physical exam indicate more allergic reaction. According to up-to-date recommend holding off on Pepcid in first trimester. Patient is already has a box of Benadryl at home. Patient was instructed to use Benadryl as needed Q 8 hours for itchiness and rash. Patient explained worrisome signs and informed to return to the ED immediately. Patient given copy of labs for follow up with primary care provider. Patient's states hernan anemia spin caused by her as per her OBGYN patient informed to follow up with OBGYN and primary care to see if she should be placed on any iron. Presently not suspecting GI bleed. Differential Diagnosis Differential Diagnoses: The differential diagnosis associated with the presentation includes (Lyme, allergic reaction, vasculitis) Admission/Observation Consideration of admission/observation: Escalation of care including admission/observation considered Lab Data MDM Lab Attestation statement: I reviewed the patient's lab results. 04/16/25 10:28 04/16/25 10:28 Labs: Lab Results 04/16/25 Range/Units 10:28 WBC 4.4 L (4.8-10.8) X10*3/uL RBC 3.51 L D (4.20-5.50) X10*6/uL Hgb 10.3 L D (12.0-16.0) g/dl Hct 29.5 L D (37.0-47.0) % MCV 84.0 (80.0-98.0) fL MCH 29.3 (27.0-33.0) pg MCHC 34.9 (31.0-35.0) g/dl RDW 13.7 (11.0-16.0) % Plt Count 200 D (160-400) X10*3/uL MPV 9.2 L (9.4-12.3) fL Immature Gran % (Auto) 0.2 (0.0-0.4) % Neut % (Auto) 38.3 L (45-73) % Lymph % (Auto) 52.6 H (20-40) % Coleman % (Auto) 6.4 (2-11) % Eos % (Auto) 1.8 (0-4) % Baso % (Auto) 0.7 (0-2) % Lymph # (Auto) 2.3 (1.2-4.9) X10*3/uL Coleman # (Auto) 0.3 (0.1-1.2) X10*3/uL Eos # (Auto) 0.1 (0.0-0.4) X10*3/uL Baso # (Auto) 0.0 (0.0-0.2) X10*3/uL Abs Immat Gran (auto) 0.01 (0.00-0.03) X10*3/uL Absolute Neuts (auto) 1.7 L (2.0-8.3) x10*3/uL Absolute Nucleated RBC 0.000 (0.0-0.012) X10*3/uL Nucleated RBC % (auto) 0.0 (0.0-0.2) /100WBC Smear Tech's Comments VERIFIED ESR 37 H (0-20) MM/HR Sodium 137 (135-145) mmol/L Potassium 3.9 (3.3-5.1) mmol/L Chloride 109 H (96-108) mmol/L Carbon Dioxide 22 (22-29) mmol/L Anion Gap 10 L (12-20) BUN 13 (9-16) mg/dL Creatinine 0.50 (0.5-1.4) mg/dL Estim Creat Clear Calc 146.7 Estimated GFR > 60 Random Glucose 85 (60-115) mg/dL Calcium 8.8 (8.4-10.2) mg/dL Total Bilirubin 0.3 (0.0-1.0) mg/dL AST 21 (5-31) U/L ALT 39 H (0-31) U/L Alkaline Phosphatase 87 (39-117) U/L C-Reactive Protein 1.95 H (< or = 0.50) mg/dL Total Protein 6.6 (6.5-8.0) g/dL Albumin 3.5 (3.5-5.0) g/dL Beta HCG, Quant 11473 mIU/mL T.pallidum Ab (EIA) Nonreactive (Nonreactive) Discharge Plan Discharge Clinical Impression: Allergic reaction, Tick bite, Vasculitis Patient Disposition: Home, Self-Care Instructions: Tick Bite (ED), General Allergic Reaction (ED) Additional Instructions: You will be called back with results for Lyme and syphilis if positive. Continue taking Benadryl you have at home for itchy rash. You will be discharged with prednisone which will help for allergic reaction and possible vasculitis. Your ESR CRP was elevated. You will be given 1 dose of doxycycline due to exposure to tick bite and having rash. Recommend follow up with primary care provider, OBGYN, and Dermatology. [facility] . [email or web address] you can make appointment online. ?[address], [place] [address], return to the ED immediately for any abdominal pain, nausea, vomiting, vaginal bleeding, vaginal discharge, worsening rash, throat swelling, lip swelling, sensation of throat closing, fever, chills, rash peeling, or any other concerning symptoms. Your labs showed anemia. You were given copy of your labs recommend shown them your primary care provider, [facility], and OBGYN provider. You're T.Pallidum RPR came back negative. Prescriptions: New prednisone 20 mg tablet 40 mg PO DAILY 5 Days Qty: 10 0RF No Action amoxicillin 500 mg tablet 500 mg PO Q12H Qty: 14 0RF Stand Alone Forms: Work/School Release Interventions: ED Discharge Assessment Last Done: 04/16/25 12:43 Discharge Date/Time: 04/16/25 12:43 Print Language: Samoan
[2025-04-16 10:33] LABS: Basophils Percent Auto 0.7 % (0-2); Eosinophils Absolute Auto 0.1 X10*3/uL (0.0-0.4); Eosinophils Percent Auto 1.8 % (0-4); Hematocrit 29.5 % (37.0-47.0); Hemoglobin 10.3 g/dl (12.0-16.0); Imm Gran Abs Auto 0.01 X10*3/uL (0.00-0.03); Imm Gran Pct Auto 0.2 % (0.0-0.4); Lymphocytes Absolute Auto 2.3 X10*3/uL (1.2-4.9); Lymphocytes Percent Auto 52.6 % (20-40); MANUAL DIFF FLAG SCAN; Mean Corpuscular HGB Conc 34.9 g/dl (31.0-35.0); Mean Corpuscular Hemoglobin 29.3 pg (27.0-33.0); Mean Platelet Volume 9.2 fL (9.4-12.3); Monocytes Absolute Auto 0.3 X10*3/uL (0.1-1.2); Monocytes Percent Auto 6.4 % (2-11); Neutrophils Absolute Auto 1.7 x10*3/uL (2.0-8.3); Neutrophils Percent Auto 38.3 % (45-73); Platelet Count 200 X10*3/uL (160-400); Red Blood Count 3.51 X10*6/uL (4.20-5.50); Red Cell Distribution Width 13.7 % (11.0-16.0); SCAN SMEAR FLAG 1; White Blood Count 4.4 X10*3/uL (4.8-10.8)
[2025-04-16] MEDS: predniSONE 20 MG TABLET 40 MG PO (10:51)
[2025-04-16 10:57] LABS: Alanine Aminotransferase 39 U/L (0-31); Albumin Level 3.5 g/dL (3.5-5.0); Alkaline Phosphatase 87 U/L (39-117); Anion Gap 10 (12-20); Aspartate Amino Transferase 21 U/L (5-31); Bilirubin Total 0.3 mg/dL (0.0-1.0); Blood Urea Nitrogen 13 mg/dL (9-16); C Reactive Protein 1.95 mg/dL (< or = 0.50); Calcium 8.8 mg/dL (8.4-10.2); Carbon Dioxide 22 mmol/L (22-29); Chloride 109 mmol/L (96-108); Creatinine Clr Calc Pharmacy 146.7; Estimated Glomerular Filt Rate > 60; Glucose Random 85 mg/dL (60-115); Potassium 3.9 mmol/L (3.3-5.1); Sodium 137 mmol/L (135-145); Total Protein 6.6 g/dL (6.5-8.0)
[2025-04-16 11:03] LABS: SLIDE REVIEW VERIFIED
[2025-04-16 11:12] LABS: Erythrocyte Sedimentation Rate 37 MM/HR (0-20)
[2025-04-16 11:19] LABS: Syphilis Screen Nonreactive (Nonreactive)
[2025-04-16 12:00] VITALS: BP 122/78; RESP 13; TEMP 36.8; O2SAT 100
[2025-04-16] MEDS: Doxycycline Monohydrate 100 MG CAPSULE 200 MG PO (12:25)
[2025-04-16 12:27] VITALS: BP 122/78; PULSE 79; RESP 13; TEMP 36.8; O2SAT 100
[2025-04-16 12:43] VITALS: BP 122/78; PULSE 79; RESP 13; TEMP 36.8; O2SAT 100
[2025-04-17 04:56] LABS: Lyme Abs Screen <0.90 index
[2025-04-18 20:03] LABS: A. Phagocytphilium DNA,RT-PCR NOT DETECTED (NOT DETECTED); Babesia Microti DNA, RT-PCR NOT DETECTED (NOT DETECTED); Borrelia Miyamotoi,DNA RT-PCR NOT DETECTED (NOT DETECTED); E.Chaffeensis DNA RT-PCR NOT DETECTED (NOT DETECTED); Lyme(Borrelia ssp)DNA RT-PCR NOT DETECTED (NOT DETECTED)
== END 2025-04-16 12:43 | disposition home or self-care (01) ==
PROVIDERS: Physician Assistant; Emergency Provider Emergency Medicine
DX: L50.0 Allergic urticaria (principal); I77.6 Arteritis, unspecified; S80.862A Insect bite (nonvenomous), left lower leg, initial encounter; S80.861A Insect bite (nonvenomous), right lower leg, initial encounter; X58.XXXA Exposure to other specified factors, initial encounter; W57.XXXA Bitten or stung by nonvenomous insect and other nonvenomous arthropods, initial encounter; Y93.9 Activity, unspecified; Y92.828 Other wilderness area as the place of occurrence of the external cause; Y99.8 Other external cause status; Z79.899 Other long term (current) drug therapy
CPT/HCPCS: 36415; 80053; 84702; 85025; 85652; 86140; 86617; 86618; 86780; 87468; 87469; 87478; 87484; 87798; 99283; 99284

== ENCOUNTER 2025-04-16 21:08 | Emergency (ER) | payer OTHER, SELFPAY ==
[2025-04-16 21:20] VITALS: BP 121/80; PULSE 79; RESP 16; TEMP 36.7; O2SAT 97; BMI 39.1
--- NOTE | 2025-04-16 22:39 | ECG_ITS ---
Test Reason : PALPILTATIONS Blood Pressure : */* mmHG Vent. Rate : 58 BPM Atrial Rate : 58 BPM P-R Int : 122 ms QRS Dur : 78 ms QT Int : 372 ms P-R-T Axes : 33 6 12 degrees QTcB Int : 365 ms Sinus bradycardia with sinus arrhythmia Otherwise normal ECG No previous ECGs available Referred By: Generic ED Physician Electronically Signed By: OCTAVIA HAAS MD
--- NOTE | 2025-04-16 22:40 | PC.NURSE ---
Pt came to triage door to inform this RN she's beginning to feel heart palpitations, infrequent in nature. EKG ordered, Electronics Specialist Dianna made aware.
== END 2025-04-17 01:44 | disposition left against medical advice (07) ==
PROVIDERS: Emergency Provider Emergency Medicine
DX: R21 Rash and other nonspecific skin eruption (principal); Z79.899 Other long term (current) drug therapy
CPT/HCPCS: 93005; 99281; 99283

== ENCOUNTER → 2025-04-16 22:39 | Outpatient (BNV) | payer OTHER, SELFPAY | PROVIDERS: Emergency Provider Emergency Medicine; Visit Provider Internal Medicine Cardiovascular Disease | DX: I49.9 Cardiac arrhythmia, unspecified (principal); R00.1 Bradycardia, unspecified | CPT/HCPCS: 93010 ==

== ENCOUNTER 2025-04-17 08:43 | Emergency (ER) | payer OTHER, SELFPAY ==
[2025-04-17 08:50] VITALS: BP 120/72; PULSE 84; RESP 16; TEMP 36.6; O2SAT 97; BMI 29.6
--- NOTE | 2025-04-17 09:00 | ED.SKABFB ---
HPI - Skin/Abscess/Foreign Bdy General Chief complaint: Skin/Abscess/Foreign Body Stated complaint: Rash all over body Time Seen by Provider: 04/17/25 11:15 History of Present Illness ED Provider: Musa Branch MD HPI narrative: [age] female with several days of rash. She is 15 weeks has no abdominal pain passage of products or other related symptoms. She did just finish 10 day course of amoxicillin for strep throat. She was not ED yesterday for itching rash that she feels as worsening despite 20 mg prednisone. Labs yesterday revealed mild anemia. Elevated inflammatory markers. Lymphocyte predominance. Related Data Previous Rx's ?Medication ?Instructions ?Recorded amoxicillin 500 mg tablet 500 mg PO Q12H #14 tabs 04/09/25 prednisone 20 mg tablet 40 mg (2 x 20 mg) PO DAILY 5 days 04/16/25 #10 tabs prednisone 20 mg tablet 60 mg (3 x 20 mg) PO DAILY 3 days 04/17/25 #9 tabs Allergies Allergy/AdvReac Type Severity Reaction Status Date / Time amoxicillin Allergy Hives Verified 04/17/25 11:49 environmental allergies Allergy Rash Verified 04/17/25 08:54 [facility] Social History Social History Unable to assess alcohol history related to: Unable to respond Advance Directives: No Advance Directives Information Provided: Yes Do you have a plan to hurt others: No Plan Physical Exam Vital Signs: Vital Signs: Last Vital Signs Temp 97.9 F 04/17/25 12:15 Pulse 84 04/17/25 12:15 Resp 16 04/17/25 12:15 BP 120/72 04/17/25 12:15 Pulse Ox 97 04/17/25 12:15 O2 Del Method Room Air 04/17/25 12:15 BMI result Body Mass Index 29.6 Const: Other: EXAM: Gen: Alert, awake, well appearing, well hydrated. Head: Atraumatic Eyes: Anicteric, Normal conjunctiva. ENT: Moist mucosa, no pallor. ?I personally did not see any vesicles ulcers or other abnormalities in the oropharyngeal or sublingual or posterior pharyngeal region Neck: Supple. Skin: Diffuse blanching itchy maculopapular/urticarial like rash particularly the breasts, sternal, volar forearm and palm and medial foot regions as well as the face and upper neck Respiratory: Breathing comfortably, No distress.Clear to auscultation bilaterally, symmetric chest expansion, No wheeze, rales, ronchi. Cardiovascular: Regular rate and rhythm. No murmurs or rub. Well perfused periphery, warm extremities. No edema. ? Abdominal: No FOCAL TENDERNESS. Soft, no objective distension. No palpable masses or obvious organomegaly. ?No guarding, no rebound tenderness or other peritoneal findings. : No flank tenderness. Neuro: Alert. Gross movement of all extremities intact. ? Vital signs: See flowsheet Course Course Course Narrative: 29 yo female with no PMH and no hx of eczema - has hx of rashes and hives with relation to stress, she has had this all over body rash x 3 has been tested for lyme, she recently had strep throat with amoxicillin 04/09 and she completed it but the rash started while on abx. She notes she feels she has a rash starting in the foot on Tuesday and now it has spread she feels she has lesions in her mouth and vagina. She notes the rash is fine at one point then it comes back. It comes and goes. She is currently on 20mg prednisone daily which started today. She notes she tried hydrocortisone on the foot. She does need a vaginal exam. In her mouth I see one small lesion R soft palate. I think this is either PUPP or the start of pemphigoid. Would start mid potency steroids and increase her to 40mg. this is a RAPID medical screening exam the rest of the history and physical exam is to be done by the main provider. DAISY 04/17/25 9am Medications Administered Discontinued Medications Generic Name Dose Route Start Last Admin Trade Name Hailey PRN Reason Stop Dose Admin Famotidine 20 mg 04/17/25 11:41 04/17/25 11:49 Famotidine 20 Mg Tablet PO 04/17/25 11:42 20 mg ONCE ONE Administration Hydroxyzine HCl 50 mg 04/17/25 11:20 04/17/25 11:49 Hydroxyzine Hcl 50 Mg Tablet PO 04/17/25 11:21 50 mg ONCE ONE Administration Prednisone 60 mg 04/17/25 11:41 04/17/25 11:49 Prednisone 20 Mg Tablet PO 04/17/25 11:42 60 mg ONCE ONE Administration Medical Decision Making Medical Decision Making MDM Narrative: 29 F 1st trim preg. +prenatals, +confimed IUP on US. Rash diffuse, mild discomfort swallowing. I see no objective oropharyngeal lesions to suggest SJS. Looks c/w drug eruption/allergy, niharika given recent Abx (amox). DC abx. benadryl, prednisone increase. topicals OTC prn. No abd pain/vag bleeding to suggest related issue. Lab Data Labs: Lab Results 04/17/25 Range/Units 11:56 Respiratory Panel Hernandez See Note Adenovirus (Rapid PCR) Not Detected (Not Detect.) B.pert (TEM-PCR) Not Detected (Not Detect.) B.parapertussis DNA PCR Not Detected (Not Detect.) C. pneumoniae DNA (PCR) Not Detected (Not Detect.) Coronavirus OC43 (PCR) Not Detected (Not Detect.) Coronavirus HKU1 (PCR) Not Detected (Not Detect.) Coronavirus 229E (PCR) Not Detected (Not Detect.) Coronavirus NL63 (PCR) Not Detected (Not Detect.) Human Metapneumovir PCR Not Detected (Not Detect.) Influenza A (RT-PCR) Not Detected (Not Detect.) Influenza A (H1) PCR Not Detected (Not Detect.) Influ A (H1/09) PCR Not Detected (Not Detect.) Influenza A (H3) PCR Not Detected (Not Detect.) Influenza B (RT-PCR) Not Detected (Not Detect.) M. pneumoniae (PCR) Not Detected (Not Detect.) Parainfluenza 1 (PCR) Not Detected (Not Detect.) Parainfluenza 2 (PCR) Not Detected (Not Detect.) Parainfluenza 3 (PCR) Not Detected (Not Detect.) Parainfluenza 4 (PCR) Not Detected (Not Detect.) RSV (PCR) Not Detected (Not Detect.) Entero/Rhino (PCR) Not Detected (Not Detect.) SARS-CoV-2 RNA (RT-PCR) Not Detected (Not Detect.) Discharge Plan Discharge Clinical Impression: Allergic reaction to drug Patient Disposition: Home, Self-Care Instructions: Antibiotic Medication Allergy (ED) Additional Instructions: DISCHARGE DIAGNOSES: Presumed allergic reaction to amoxicillin we will document this as a drug allergy with hives Mild anemia, slightly low white blood cells this can be followed up by primary doctor or OBGYN Possibly viral exanthem or rash HISTORY OF PRESENTATION: ?Rash for several days EMERGENCY DEPARTMENT COURSE,TESTS, TREATMENTS: While in the ED today [04] DISCHARGE MEDICATIONS: We are changing your regimen for this skin rash to: Daily cetirizine 10 mg, daily famotidine 20 mg, daily prednisone 60 mg for 3 more days FOLLOW-UP: ?Call your primary or general physician soon as possible to discuss your symptoms, your ED visit and to discuss follow up plans You need to follow up regarding mild anemia that may be related to your . We will call you if your viral test was positive INSTRUCTIONS ?& RETURN PRECAUTIONS: If any symptoms change first call your primary physician, if it is after-hours your primary doctors office should have a provider immersion metal cleaner you can speak with. If the symptoms are severe or very concerning to you then call 911 or return to the ED. Return if you develop lesions in your mouth cracked chapped lips or vaginal ulcers or severe worsening despite prednisone and other medications Musa Branch MD Emergency Physician [facility] Prescriptions: New prednisone 20 mg tablet 60 mg PO DAILY 3 Days Qty: 9 0RF No Action amoxicillin 500 mg tablet 500 mg PO Q12H Qty: 14 0RF prednisone 20 mg tablet 40 mg PO DAILY 5 Days Qty: 10 0RF Interventions: ED Discharge Assessment Last Done: 04/17/25 12:15 Discharge Date/Time: 04/17/25 12:15 Print Language: Kosovan
[2025-04-17] MEDS: Famotidine 20 MG TABLET PO (11:49)
[2025-04-17] MEDS: hydrOXYzine HCL 50 MG TABLET PO (11:49)
[2025-04-17] MEDS: predniSONE 20 MG TABLET 60 MG PO (11:49)
[2025-04-17 12:15] VITALS: BP 120/72; PULSE 84; RESP 16; TEMP 36.6; O2SAT 97
[2025-04-17 14:58] LABS: Adenovirus PCR Not Detected (Not Detect.); Bordetella parapertussis PCR Not Detected (Not Detect.); Bordetella pertussis PCR Not Detected (Not Detect.); Chlamydia pneumoniae PCR Not Detected (Not Detect.); Coronavirus 229E PCR Not Detected (Not Detect.); Coronavirus HKU1 PCR Not Detected (Not Detect.); Coronavirus NL63 PCR Not Detected (Not Detect.); Coronavirus OC43 PCR Not Detected (Not Detect.); Human metapneumovirus PCR Not Detected (Not Detect.); Influenza A PCR Not Detected (Not Detect.); Influenza B PCR Not Detected (Not Detect.); Mycoplasma pneumoniae PCR Not Detected (Not Detect.); Parainfluenza 1 PCR Not Detected (Not Detect.); Parainfluenza 2 PCR Not Detected (Not Detect.); Parainfluenza 3 PCR Not Detected (Not Detect.); Parainfluenza 4 PCR Not Detected (Not Detect.); RSV PCR Not Detected (Not Detect.); Rhino/Enterovirus PCR Not Detected (Not Detect.); SARS-CoV-2 PCR Not Detected (Not Detect.)
[2025-04-17 15:50] LABS: Influenza A H1 PCR Not Detected (Not Detect.); Influenza A H1-2009 PCR Not Detected (Not Detect.); Influenza A H3 PCR Not Detected (Not Detect.)
== END 2025-04-17 12:15 | disposition home or self-care (01) ==
PROVIDERS: Emergency Provider Emergency Medicine
DX: O9A.212 Injury, poisoning and certain other consequences of external causes complicating pregnancy, second trimester (principal); L50.0 Allergic urticaria; T36.0X5A Adverse effect of penicillins, initial encounter; Z3A.15 15 weeks gestation of pregnancy; Y92.019 Unspecified place in single-family (private) house as the place of occurrence of the external cause
CPT/HCPCS: 87633; 99283